=== PATIENT | male | born 1970 | race Caucasian/White ===

== ENCOUNTER 2019-12-17 22:35 | Inpatient (IN) | payer OTHER ==
[~2019-12-17] VITALS: Ht 177.8 cm; Wt 113.6 kg
[2019-12-17] MEDS ORDERED: NS IV 1000 ML 1,000 ML IV ONE (23:25)
[2019-12-17] MEDS ORDERED: NS IV 1000 ML 1,000 ML IV SCH (23:25)
[2019-12-17] MEDS ORDERED: AZITHROMYCIN INJECTION 500 MG in NS (IVPB) 250 ML IV ONE (23:30)
[2019-12-17] MEDS ORDERED: cefTRIAXone FOR IV USE 1,000 MG in WATER (STERILE) FOR INJECTION 10 ML IV ONE (23:30)
[2019-12-17 23:39] LABS: BILIRUBIN,URINE NEGATIVE (NEGATIVE); CLARITY,URINE CLEAR; COLOR,URINE YELLOW; GLUCOSE, URINE (UA) NEGATIVE (NEGATIVE); KETONES,URINE NEGATIVE (NEGATIVE); LEUKOCYTE ESTERASE ,URINE NEGATIVE (NEGATIVE); NITRITE,URINE NEGATIVE (NEGATIVE); PROTEIN,URINE NEGATIVE (NEGATIVE)
[2019-12-17 23:45] LABS: INR 2.2 (0.8-1.4); PROTHROMBIN TIME PATIENT 25.2 SEC (12.2-14.7)
[2019-12-17 23:55] LABS: BASOPHILS % (AUTO) 0 % (0-10); EOSINOPHILS % (AUTO) 0 % (0-10); HEMATOCRIT 49 % (40-54); HEMOGLOBIN 16.8 G/DL (13.3-17.7); LYMPHOCYTES # (AUTO) 1.5 X 10^3 (1.0-4.0); LYMPHOCYTES % (AUTO) 12 % (12-44); MEAN CORPUSCULAR HEMOGLOBIN 31 PG (25-34); MEAN CORPUSCULAR HGB CONC 34 G/DL (32-36); MEAN CORPUSCULAR VOLUME 91 FL (80-99); MONOCYTES # (AUTO) 0.7 X 10^3 (0.0-1.0); MONOCYTES % (AUTO) 6 % (0-12); NEUTROPHILS # (AUTO) 10.6 X 10^3 (1.8-7.8); NEUTROPHILS % (AUTO) 83 % (42-75); PLATELET COUNT 188 10^3/uL (130-400); RED CELL DISTRIBUTION WIDTH 14.1 % (10.0-14.5); WHITE BLOOD COUNT 12.8 10^3/uL (4.3-11.0)
[2019-12-17 23:58] LABS: BACTERIA,URINE TRACE /HPF
[2019-12-18] LABS: ALANINE AMINOTRANSFERASE 37 U/L (0-55); ALBUMIN 4.5 GM/DL (3.2-4.5); ALKALINE PHOSPHATASE 75 U/L (40-136); BILIRUBIN,TOTAL 0.3 MG/DL (0.1-1.0); BUN/CREATININE RATIO 15; CALCIUM 9.6 MG/DL (8.5-10.1); CARBON DIOXIDE 17 MMOL/L (21-32); CHLORIDE 105 MMOL/L (98-107); CREATININE SERUM 1.03 MG/DL (0.60-1.30); GFR ESTIMATED > 60; GLUCOSE 190 MG/DL (70-105); POTASSIUM 3.6 MMOL/L (3.6-5.0); SODIUM 137 MMOL/L (135-145)
--- NOTE | 2019-12-18 00:44 | ED EENT ---
History of Present Illness General Chief Complaint: Cough/Cold/Flu Symptoms Stated Complaint: CONGESTED Source: patient, family (dad) Exam Limitations: no limitations History of Present Illness Date Seen by Provider: Dec 18, 2019 Time Seen by Provider: 00:21 Initial Comments Patient resents to ER by private conveyance with chief complaint that about 10 days ago he started having a sore throat and had 2 days of fever Tmax 101 Fahrenheit. He has a history of artificial heart valve and is on warfarin 4 mg for 2 days and then 5 mg on the third day. He follows with Dr. Chavira. He went to see him and was put on cephalexin which she has also completed but is still having worsening sore throat, painful swallowing but no wheezing. Occasional cough but nonproductive. He is not having any nausea or chest pain. No coronary disease. Patient has not had any recent travel. He has been having difficulty with fluids but still able to drink despite pain. He is not using anything for pain or fever except for the occasional Bailey that he uses for his chronic knee pain. He said the last time he had Bailey was about 24 hours ago. He smokes about a pack cigarettes per day. Allergies and Home Medications Allergies Coded Allergies: No Known Drug Allergies (Unverified , 12/17/19) Patient Home Medication List Home Medication List Reviewed: Yes Review of Systems Review of Systems Constitutional: fever, malaise Eyes: Denies Blindness, Denies Blurred Vision Ears: Denies Dizziness, Denies Pain Nose: denies clots, denies congestion Mouth: denies clots, denies loose teeth Throat: pain, swelling; denies discharge, denies neck stiffness; hoarse; denies aphonia, denies muffled; painful swallowing, difficulty with fluids Respiratory: cough; No phlegm, No short of breath Cardiovascular: No chest pain, No edema; other (heart valve replacement) Gastrointestinal: No abdominal pain, No constipation, No diarrhea Musculoskeletal: No back pain; joint pain (chronic knee pain) All Other Systems Reviewed Negative Unless Noted: Yes Past Panjhpv-Gghcaw-Zxfvrj Hx Patient Social History Alcohol Use: Occasionally Uses Alcohol Beverage of Choice: Whiskey Recreational Drug Use: No Smoking Status: Current Everyday Smoker Type Used: Cigarettes Recent Foreign Travel: No Contact w/Someone Who Travel: No Physical Exam Height, Weight, BMI Height: '" Weight: lbs. oz. kg; BMI Method: General Appearance: WD/WN, mild distress Eyes: bilateral eye normal inspection, bilateral eye PERRL, bilateral eye EOMI Ears: bilateral ear auricle normal, bilateral ear canal normal, bilateral ear TM normal Nose: normal inspection; No discharge Mouth/Throat: No foreign body, No tonsillar exudate; tonsillar swelling (erythema), other (nonobstructive retropharynx.) Neck: full range of motion, supple, normal inspection, lymphadenopathy (R), lymphadenopathy (L) (shotty bilateral Dr. Alvares anterior cervical lymphadenopathy), tender lateral (anterior bilateral lymph node chains without palpable mass) Cardiovascular: normal peripheral pulses, regular rate, rhythm Respiratory: no respiratory distress, no accessory muscle use, rhonchi (mild rhonchus right side) Gastrointestinal: non tender, soft Neurologic/Psychiatric: alert, oriented x 3 Skin: normal color, warm/dry Progress/Results/Core Measures Results/Orders Lab Results Laboratory Tests Test 12/17/19 23:12 12/17/19 23:27 12/17/19 23:31 12/18/19 00:10 Range/Units White Blood Count 12.8 H 4.3-11.0 10^3/uL Red Blood Count 5.36 4.35-5.85 10^6/uL Hemoglobin 16.8 13.3-17.7 G/DL Hematocrit 49 40-54 % Mean Corpuscular Volume 91 80-99 FL Mean Corpuscular Hemoglobin 31 25-34 PG Mean Corpuscular Hemoglobin Concent 34 32-36 G/DL Red Cell Distribution Width 14.1 10.0-14.5 % Platelet Count 188 130-400 10^3/uL Mean Platelet Volume 12.0 H 7.4-10.4 FL Neutrophils (%) (Auto) 83 H 42-75 % Lymphocytes (%) (Auto) 12 12-44 % Monocytes (%) (Auto) 6 0-12 % Eosinophils (%) (Auto) 0 0-10 % Basophils (%) (Auto) 0 0-10 % Neutrophils # (Auto) 10.6 H 1.8-7.8 X 10^3 Lymphocytes # (Auto) 1.5 1.0-4.0 X 10^3 Monocytes # (Auto) 0.7 0.0-1.0 X 10^3 Eosinophils # (Auto) 0.0 0.0-0.3 10^3/uL Basophils # (Auto) 0.0 0.0-0.1 10^3/uL Prothrombin Time 25.2 H 12.2-14.7 SEC INR Comment 2.2 H 0.8-1.4 Activated Partial Thromboplast Time 40 H 24-35 SEC Sodium Level 137 135-145 MMOL/L Potassium Level 3.6 3.6-5.0 MMOL/L Chloride Level 105 98-107 MMOL/L Carbon Dioxide Level 17 L 21-32 MMOL/L Anion Gap 15 H 5-14 MMOL/L Blood Urea Nitrogen 15 7-18 MG/DL Creatinine 1.03 0.60-1.30 MG/DL Estimat Glomerular Filtration Rate > 60 BUN/Creatinine Ratio 15 Glucose Level 190 H 70-105 MG/DL Calcium Level 9.6 8.5-10.1 MG/DL Corrected Calcium 9.2 8.5-10.1 MG/DL Total Bilirubin 0.3 0.1-1.0 MG/DL Aspartate Amino Transf (AST/SGOT) 27 5-34 U/L Alanine Aminotransferase (ALT/SGPT) 37 0-55 U/L Alkaline Phosphatase 75 40-136 U/L Total Protein 8.0 6.4-8.2 GM/DL Albumin 4.5 3.2-4.5 GM/DL Lactic Acid Level 3.08 *H 0.50-2.00 MMOL/L Urine Color YELLOW Urine Clarity CLEAR Urine pH 6.0 5-9 Urine Specific [place] <=1.005 1.016-1.022 Urine Protein NEGATIVE NEGATIVE Urine Glucose (UA) NEGATIVE NEGATIVE Urine Ketones NEGATIVE NEGATIVE Urine Nitrite NEGATIVE NEGATIVE Urine Bilirubin NEGATIVE NEGATIVE Urine Urobilinogen 0.2 < = 1.0 MG/DL Urine Leukocyte Esterase NEGATIVE NEGATIVE Urine RBC (Auto) TRACE-I NEGATIVE Urine RBC NONE /HPF Urine WBC NONE /HPF Urine Crystals NONE /LPF Urine Bacteria TRACE /HPF Urine Casts NONE /LPF Urine Mucus NEGATIVE /LPF Urine Culture Indicated NO Group A Streptococcus Screen NEGATIVE NEGATIVE Micro Results Microbiology 12/17/19 Influenza Types A,B Antigen (MICHAEL) - Final, Complete My Orders Orders - MARGI RODRIGUEZ Influenza A And B Antigens (12/17/19 23:20) Cbc With Automated Diff (12/17/19 23:20) Comprehensive Metabolic Panel (12/17/19 23:20) Blood Culture (12/17/19 23:20) Sputum Culture (12/17/19:20) Urinalysis (12/17/19:20) Urine Culture (12/17/19:20) Protime With Inr (12/17/19:20) Partial Thromboplastin Time (12/17/19:20) Chest 1 View, Ap/Pa Only (12/17/19:20) Ed Iv/Invasive Line Start (12/17/19:20) Ed Iv/Invasive Line Start (12/17/19:20) Vital Signs Adult Sepsis Patie Q15M (12/17/19:20) O2 (12/17/19:20) Remove Rings In Anticipation O (12/17/19:) Lactic Acid Analyzer (12/17/19:20) Ed Iv/Invasive Line Start (12/17/19 23:20) Ed Iv/Invasive Line Start (12/17/19 23:25) Ns Iv 1000 Ml (Sodium Chloride 0.9%) (12/17/19 23:25) Ns Iv 1000 Ml (Sodium Chloride 0.9%) (12/17/19 23:25) Ceftriaxone For Iv Use (Rocephin For I (12/17/19 23:30) Azithromycin Injection (Zithromax Inject (12/17/19 23:30) Rapid Strep A Screen (12/18/19 00:06) Drug Screen Stat (Urine) (12/18/19 00:35) Medications Given in ED Current Medications Medications Dose Ordered Sig/Kamla Route Start Time Stop Time Status Last Admin Dose Admin Azithromycin 500 mg/Sodium Chloride 250 ml @ 250 mls/hr ONCE ONCE IV 12/17/19 23:30 12/18/19 00:29 DC 12/18/19 00:08 250 MLS/HR Ceftriaxone Sodium 1000 mg/ Sterile Water 10 ml @ 200 mls/hr ONCE ONCE IV 12/17/19 23:30 12/17/19 23:32 DC 12/18/19 00:08 200 MLS/HR Sodium Chloride 1,000 ml @ 0 mls/hr Q0M ONCE IV 12/17/19 23:25 12/17/19 23:27 DC 12/17/19 23:56 1,000 MLS/HR Progress Progress Note : Time: 00:46 Progress Note Sepsis based on tachycardia and increased respiratory rate and history of fever. Septic workup was given, Rocephin and azithromycin. Possible he has developed pneumonia although is not seen on the chest x-ray. Could also be bronchitis related to the retropharyngeal infection. He has failed outpatient antibiotics. We will hold off on steroids and continue Rocephin and azithromycin. He is not having any airway or drinking compromise at this time. 2 L would be greater than 20 mL/kg based on ideal body weight. His heart rate was 120 to 1:30 when he arrived is now down about 100-110 after the first liter of fluids. Blood pressure has been stable since he got here and would be fine to go to the floor. Diagnostic Imaging Diagonstic Imaging: Xray Plain Films/CT/US/NM/MRI: chest Comments No acute cardiopulmonary process noted. Reviewed: Reviewed by Me Departure Communication (Admissions) Time/Spoke to Admitting Phy: 00:35 Discussed case lab imaging with Dr. Chavira and the possibility of an occult pneumonia. Discussed that he has failed outpatient antibiotics for his retropharyngeal infection. Do not palpate or have any evidence of significant abscess or airway obstruction. Plan to keep IV fluids going. He agrees with antibiotic selection. Impression Primary Impression: Pneumonia Qualified Codes: J18.9 - Pneumonia, unspecified organism Additional Impressions: Pharyngitis Qualified Codes: J02.9 - Acute pharyngitis, unspecified Sepsis Qualified Codes: A41.9 - Sepsis, unspecified organism Disposition: ADMITTED INPATIENT Condition: Stable Admissions Decision to Admit Reason: Admit from ER (General) Decision to Admit/Date: Dec 18, 2019 Time/Decision to Admit Time: 00:27 Departure-Patient Inst. Referrals: SUSY CHAVIRA DO (PCP) Primary Care Physician Focused Exam Sepsis Stage: Sepsis Possible Source: Pulmonary Lactate Level 12/17/19 23:27: Lactic Acid Level 3.08*H Height, Weight, BMI Height: '" Weight: lbs. oz. kg; BMI Method: Respiratory: No Accessory Muscle Use, No Respiratory Distress, Rhonci Cardiovascular: Regular Rate, Rhythm, No Edema, Tachycardia Capillary Refill: Less Than 3 Seconds Peripheral Pulses: 2+ Dorsalis Pedis (R), 2+ Left Dors-Pedis (L) Skin: normal color, warm/dry Lactic Acid Level Laboratory Tests Test 12/17/19 23:27 Lactic Acid Level 3.08 MMOL/L (0.50-2.00) *H Within 3hrs of presentation: Admin fluids, Admin 30ml/kg IBW due to BMI>30, Admin ABX, Blood cultures prior to ABX's, Focus exam, Lactate level MARGI RODRIGUEZ Dec 18, 2019 00:44
[2019-12-18 01:10] LABS: AMPHETAMINE SCREEN, URINE NEGATIVE (NEGATIVE); BARBITURATE SCREEN URINE NEGATIVE (NEGATIVE); BENZODIAZEPINES SCREEN URINE POSITIVE (NEGATIVE); CANNABINOID SCREEN, URINE NEGATIVE (NEGATIVE); COCAINE SCREEN URINE NEGATIVE (NEGATIVE); METHADONE STAT NEGATIVE (NEGATIVE); METHAMPHETAMINE SCREEN URINE S NEGATIVE (NEGATIVE); OPIATE SCREEN URINE NEGATIVE (NEGATIVE); OXYCODONE STAT NEGATIVE (NEGATIVE); PROPOXYPHENE STAT NEGATIVE (NEGATIVE); TRICYCLIC ANTIDEPRESSANTS SCRE NEGATIVE (NEGATIVE)
[2019-12-18] MEDS ORDERED: NS W/KCL 20 MEQ/L 1,000 ML IV ONE (01:48)
[2019-12-18] MEDS ORDERED: ACETAMINOPHEN 325 MG TABLET PO PRN (02:30)
[2019-12-18] MEDS ORDERED: ONDANSETRON 4 MG/2 ML (SDV) Z0FRAN IV PRN (02:30)
[2019-12-18] MEDS: NS W/KCL 20 MEQ/L 1,000 ML IV SCH ×2 (02:30→13:28)
[2019-12-18 02:48] VITALS: BP 138/74
--- NOTE | 2019-12-18 03:40 | NUR ---
MAT score of 3 Albuterol Q2PRN Monitor and Reassess Q72HRs and PRN Addendum: 12/18/19 at 0341 by KAREN OCONNELL RT Amended: Links added.
[2019-12-18] MEDS ORDERED: RT-ALBUTEROL SULF 2.5 MG/3 ML PRE-MIX VIAL INH PRN (03:45)
[2019-12-18 04:25] VITALS: BP 135/98
--- NOTE | 2019-12-18 04:57 | Diagnostic Imaging Report ---
Indication: Respiratory infection Portable chest 11:54 PM There are postoperative changes from a median sternotomy. Heart size and pulmonary vascularity are normal. Lungs are clear. There are no effusions or pneumothoraces. IMPRESSION: No acute abnormalities in the chest Dictated by: Dictated on workstation # [id number]
[2019-12-18] MEDS: HYDROcodone/APAP 5 MG/325 MG (LORTAB) TAB PO PRN (06:11)
[2019-12-18 06:16] LABS: BASOPHILS % (AUTO) 0 % (0-10); EOSINOPHILS % (AUTO) 0 % (0-10); HEMATOCRIT 44 % (40-54); HEMOGLOBIN 15.3 G/DL (13.3-17.7); LYMPHOCYTES % (AUTO) 22 % (12-44); MEAN CORPUSCULAR HEMOGLOBIN 32 PG (25-34); MEAN CORPUSCULAR HGB CONC 35 G/DL (32-36); MEAN CORPUSCULAR VOLUME 92 FL (80-99); MEAN PLATELET VOLUME 11.6 FL (7.4-10.4); MONOCYTES # (AUTO) 0.8 X 10^3 (0.0-1.0); MONOCYTES % (AUTO) 6 % (0-12); NEUTROPHILS # (AUTO) 9.5 X 10^3 (1.8-7.8); NEUTROPHILS % (AUTO) 71 % (42-75); PLATELET COUNT 154 10^3/uL (130-400); RED CELL DISTRIBUTION WIDTH 14.2 % (10.0-14.5); WHITE BLOOD COUNT 13.3 10^3/uL (4.3-11.0)
[2019-12-18 06:25] LABS: INR 2.5 (0.8-1.4); PROTHROMBIN TIME PATIENT 28.3 SEC (12.2-14.7)
[2019-12-18 06:33] LABS: ALANINE AMINOTRANSFERASE 36 U/L (0-55); ALKALINE PHOSPHATASE 60 U/L (40-136); BILIRUBIN,TOTAL 0.3 MG/DL (0.1-1.0); BUN/CREATININE RATIO 15; CALCIUM 8.1 MG/DL (8.5-10.1); CARBON DIOXIDE 19 MMOL/L (21-32); CHLORIDE 107 MMOL/L (98-107); CREATININE SERUM 0.86 MG/DL (0.60-1.30); GFR ESTIMATED > 60; GLUCOSE 110 MG/DL (70-105); POTASSIUM 4.5 MMOL/L (3.6-5.0); SODIUM 134 MMOL/L (135-145); TOTAL PROTEIN 7.1 GM/DL (6.4-8.2)
[2019-12-18 07:52] VITALS: BP 132/86
--- NOTE | 2019-12-18 08:08 | History & Physical ---
History of Present Illness History of Present Illness Reason for visit/HPI Patient came out to the emergency room in private vehicle. Patient has been treated as an outpatient for respiratory problem without succ ess. Patient has cough and congestion. Patient having severe sore throat and problem with talking. Patient having lung congestion. Patient has an elevated lactic acid of 3.08. Patient tachycardia.. Allergic to medications denies. Surgery open heart mitral valve, knee, appendectomy. Family history mother of lung cancer. Patient admits to smoking Date of Admission Dec 18, 2019 at 00:35 Time Seen by a Provider: 07:50 I consulted on this patient on 12/18/19 07:50 Attending Physician Elbert Chavira DO Admitting Physician Elbert Chavira DO Consult Allergies and Home Medications Allergies Coded Allergies: No Known Drug Allergies (Unverified , 12/17/19) Patient Home Medication List Home Medication List Reviewed: No Past Tlhumpo-Jgjwfo-Nlocez Hx Past Med/Social Hx: Reviewed Nursing Past Med/Soc Hx Patient Social History Marrital Status: Employed/Student: employed Alcohol Use: Occasionally Uses Alcohol Beverage of Choice: Whiskey Recreational Drug Use: No Smoking Status: Current Everyday Smoker Type Used: Cigarettes Recent Foreign Travel: No Contact w/other who traveled: No Recent Hopitalizations: No Recent Infectious Disease Expo: No Immunizations Up To Date Date of Influenza Vaccine: Jul 18, 2019 Seasonal Allergies Seasonal Allergies: No Past Medical History Surgeries: Appendectomy, Cardiac Cardiac: Hypertension, Valvular Heart Disease (0) Musculoskeletal: Arthritis Review of Systems Constitutional: weakness EENTM: throat pain Respiratory: cough Cardiovascular: vascular heart diseas Gastrointestinal: no symptoms reported Genitourinary: no symptoms reported Physical Exam Vital Signs Vital Signs - First Documented 12/17/19 12/18/19 23:00 03:36 Temp 37.1 Pulse 115 Resp 20 B/P (MAP) 128/85 (99) Pulse Ox 94 O2 Delivery Room Air FiO2 21 Capillary Refill : Less Than 3 Seconds Height, Weight, BMI Height: '" Weight: lbs. oz. kg; 35.93 BMI Method: General Appearance: No Apparent Distress, WD/WN Eyes: Bilateral Eye Normal Inspection HEENT: Normal ENT Inspection Neck: Full Range of Motion, Normal Inspection Respiratory: No Accessory Muscle Use, No Respiratory Distress, Decreased Breath Sounds, Other (Congestion with coughing) Cardiovascular: Regular Rate, Rhythm, Other (Mitral valve) Gastrointestinal: Non Tender, Soft Assessment/Plan Assessment and Plan Pneumonia. Pharyngitis. Sepsis. Admission Diagnosis Admission Status: Inpatient Order (span 2 midnights) Reason for Inpatient Admission: Lactic acid over 3. Tachycardia. Severe sore throat area Mitral valve replacement Clinical Quality Measures DVT/VTE Risk/Contraindication: Risk Factor Score Per Nursin RFS Level Per Nursing on Admit: 4+=Very High ELBERT CHAVIRA DO Dec 18, 2019 08:07
[2019-12-18] MEDS ORDERED: CATHETER FLUSH 10 ML SYR IV PRN (08:30)
[2019-12-18] MEDS ORDERED: ALPR1TAB7 PO (09:57)
[2019-12-18] MEDS ORDERED: CEPH500C PO (09:57)
[2019-12-18] MEDS ORDERED: LISI-552 PO (09:57)
[2019-12-18] MEDS ORDERED: HYDR-4227 PO (09:57)
[2019-12-18] MEDS ORDERED: PRED10TA22 PO (09:57)
[2019-12-18] MEDS ORDERED: WARF4TAB70 PO (10:01)
[2019-12-18] MEDS ORDERED: WARF-48 PO (10:01)
[2019-12-18] MEDS: PROMETHAZINE/ CODEINE SYRUP 5 ML UDC PO PRN ×2 (10:02→18:23)
--- NOTE | 2019-12-18 10:44 | Physician Query Clarification ---
PQ-Intro New Diagnosis Admission/Discharge Admission Date: Dec 18, 2019 at 00:35 Discharge Date: The medical record reflects the following clinical scenario: History/Risk Factors: Sepsis Pneumonia/acute pharyngitis Clinical Findings:Lactic acid 3.08 Treatment: Lactic acid levels x 2. IV Azithromycin 500mg and IV Ceftriaxone. Question: What condition best reflects the above clinical scenario? Please document a response in the Progress Noter or Discharge Summary. 1. Severe sepsis with lactic acidosis level of 3.08. 2. Lactic acidosis with level of 3.08. 3. Other, with explanation of the clinical findings. 4. Clinically undetermined, no explanation for the clinical findings. PHYSICIAN RESPONSE What condition reflects above: Clinically undetermined Please remember a lack of response to the above will prompt a phone page by [facility]/Coding staff. In responding to this query, please exercise your independent professional judgment. The purpose of this communication is to more accurately reflect the complexity of your patients condition. The fact that a question is asked does not imply that any particular answer is desired or expected. Thank you for your timely response to this clarification. Requestors name: Meeta Torres [facility] Phone # ext [phone] or [phone] THIS PHYSICIAN QUERY FORM IS A PERMANENT PART OF THE MEDICAL RECORD MEETA TORRES Dec 18, 2019 10:44 SUSY CHAVIRA DO Dec 19, 2019 07:36
--- NOTE | 2019-12-18 11:09 | NUR ---
SPOKE WITH THE PT WENT THRU THE EXT MED HISTORY AND CALLED [facility] COMPLETE THE MED REC. WARFARIN: PT TAKES 4MG FOR 2 DAYS THEN ON THE THIRD DAY HE TAKES 5MG EXAMPLE: THIS WEEK HAS GONE HAS FOLLOWS- SUN 12-13 WARFARIN 4MG 12-14 WARFARIN 4MG 12-15 WARFARIN 5MG 12-16 WARFARIN 4MG PREDNISONE 10MG IS ON A TAPER AND IS DOCUMENTED IN THE MED REC ALL OTHER MEDS ARE LISTED IN THE EXT MED HIST OTC: NONE
[2019-12-18] MEDS ORDERED: ALPRAZolam 1 MG (XANAX) TAB PO PRN (11:45)
[2019-12-18] MEDS ORDERED: HYDROcodone/APAP 7.5 MG/325 MG (LORTAB, LORCET PLUS) TABLET PO PRN (11:45)
[2019-12-18 12:58] VITALS: BP 134/82
[2019-12-18] MEDS: cefTRIAXone FOR IV USE 1,000 MG in WATER (STERILE) FOR INJECTION 10 ML IV SCH (13:28)
--- NOTE | 2019-12-18 13:34 | Diagnostic Imaging Report ---
INDICATION: Pneumonia, follow-up. TECHNIQUE: Two view chest at 11:28 AM CORRELATION STUDY: 12/17/2019 FINDINGS: Poststernotomy changes. Heart size, mediastinum, vasculature overall generally stable. The lung teixeira are relatively clear without significant consolidating infiltrate. Visualized osseous structures are unremarkable. IMPRESSION: 1. Stable chest demonstrates no acute abnormality. Dictated by: Dictated on workstation # [id number]
[2019-12-18 15:55] VITALS: BP 114/76
[2019-12-18] MEDS ORDERED: warFARin 4 MG (COUMADIN) TAB PO SCH ×2 (18:00)
[2019-12-18 20:00] VITALS: BP 157/88
[2019-12-19] MEDS: PROMETHAZINE/ CODEINE SYRUP 5 ML UDC PO PRN (00:21)
[2019-12-19 00:38] VITALS: BP 138/78
[2019-12-19 04:00] VITALS: BP 138/84
[2019-12-19 05:03] LABS: HEMOGLOBIN 15.1 G/DL (13.3-17.7); MEAN PLATELET VOLUME 11.4 FL (7.4-10.4); RED CELL DISTRIBUTION WIDTH 14.2 % (10.0-14.5); WHITE BLOOD COUNT 7.1 10^3/uL (4.3-11.0)
[2019-12-19 05:19] LABS: INR 2.2 (0.8-1.4); PROTHROMBIN TIME PATIENT 25.1 SEC (12.2-14.7)
[2019-12-19 05:26] LABS: BUN/CREATININE RATIO 14; CALCIUM 8.2 MG/DL (8.5-10.1); CARBON DIOXIDE 21 MMOL/L (21-32); CHLORIDE 107 MMOL/L (98-107); CREATININE SERUM 0.85 MG/DL (0.60-1.30); GFR ESTIMATED > 60; GLUCOSE 86 MG/DL (70-105); POTASSIUM 4.6 MMOL/L (3.6-5.0); SODIUM 137 MMOL/L (135-145)
[2019-12-19] MEDS: NS W/KCL 20 MEQ/L 1,000 ML IV SCH (05:40)
[2019-12-19] MEDS: HYDROcodone/APAP 5 MG/325 MG (LORTAB) TAB PO PRN (07:39)
--- NOTE | 2019-12-19 08:06 | Progress Note ---
Subjective Time Seen by a Provider: 08:04 Subjective/Events-last exam Patient doing better and feeling better. Patient wants to go home. Patient to be discharged today. Patient afebrile. Breathing better. Patient speaking better Focused Exam Lactate Level 12/17/19 23:27: Lactic Acid Level 3.08*H 12/18/19 05:53: Lactic Acid Level 1.43 Objective Exam Vital Signs Date Time Temp Pulse Resp B/P (MAP) Pulse Ox O2 Delivery O2 Flow Rate FiO2 12/19/19 04:00 36.6 69 20 138/84 (102) 98 Room Air 12/19/19 00:38 36.2 69 20 138/78 (98) 95 Room Air 12/18/19 20:01 Room Air 12/18/19 20:00 36.4 87 20 157/88 (111) 96 Room Air 12/18/19 20:00 96 Room Air 12/18/19 18:54 36.2 12/18/19 15:55 36.2 75 15 114/76 (89) 96 Room Air 12/18/19 12:58 36.8 92 20 134/82 (99) 97 Room Air I & O 12/19/19 07:00 Intake Total 3910 ml Balance 3910 ml Capillary Refill : Less Than 3 Seconds General Appearance: No Apparent Distress, WD/WN HEENT: Normal ENT Inspection Neck: Full Range of Motion, Non Tender Respiratory: Lungs Clear, No Accessory Muscle Use, No Respiratory Distress Cardiovascular: Regular Rate, Rhythm, No Murmur Gastrointestinal: non tender, soft Results Lab Laboratory Tests 12/19/19 04:30 Laboratory Tests 12/19/19 04:30: White Blood Count 7.1, Red Blood Count 4.84, Hemoglobin 15.1, Hematocrit 45, Mean Corpuscular Volume 93, Mean Corpuscular Hemoglobin 31, Mean Corpuscular Hemoglobin Concent 34, Red Cell Distribution Width 14.2, Platelet Count 129L, Mean Platelet Volume 11.4H, Prothrombin Time 25.1H, INR Comment 2.2H, Sodium Level 137, Potassium Level 4.6, Chloride Level 107, Carbon Dioxide Level 21, Anion Gap 9, Blood Urea Nitrogen 12, Creatinine 0.85, Estimat Glomerular Filtration Rate > 60, BUN/Creatinine Ratio 14, Glucose Level 86, Calcium Level 8.2L Microbiology 12/17/19 Blood Culture - Preliminary, Resulted No growth 12/17/19 Influenza Types A,B Antigen (MICHAEL) - Final, Complete Assessment/Plan Assessment/Plan Assess & Plan/Chief Complaint Pneumonia. Pharyngitis. 2 office next Sunday. Patient sent home on [employer] Clinical Quality Measures Admission Status Admission Dx Pneumonia. Pharyngitis. Sepsis. DVT/VTE Risk/Contraindication: Risk Factor Score Per Nursin RFS Level Per Nursing on Admit: 4+=Very High Contraindications-Pharm: Other *list below* SUSY CHAVIRA DO Dec 19, 2019 08:06
[2019-12-19] MEDS ORDERED: AZIT250T PO (08:09)
[2019-12-19] MEDS: cefTRIAXone FOR IV USE 1,000 MG in WATER (STERILE) FOR INJECTION 10 ML IV SCH (08:47)
[2019-12-19] MEDS ORDERED: AZITHROMYCIN INJECTION 500 MG in NS (IVPB) 250 ML IV SCH (09:00)
[2019-12-19] MEDS ORDERED: lisINopril 20 MG (PRINIVIL) TABLET PO SCH (11:00)
[2019-12-19] MEDS ORDERED: warFARin 1 MG (COUMADIN) TAB PO SCH (18:00)
--- OUTSIDE RECORDS SUMMARY | 2019-12-20 00:37 | XMS REPORT | Continuity of Care Document ---
Author Organization Unknown Address Unknown Phone Unavailable Allergies Active Description Code Type Severity Reaction Onset Reported/Identified Relationship to Patient Clinical Status Yes No Known Drug Allergies [id number] Drug Allergy Unknown N/A 12/17/2019 Medications There is no data. Problems Date Dx Coded Attending Type Code Diagnosis Diagnosed By 12/18/2019 GELLENDER DO, SUSY Chavez Ot A41.9 SEPSIS, UNSPECIFIED ORGANISM 12/18/2019 GELLENDER DO, SUSY Chavez Ot F17.210 NICOTINE DEPENDENCE, CIGARETTES, UNCOMPL 12/18/2019 GELLENDER DO, SUSY Chavez Ot I10 ESSENTIAL (PRIMARY) HYPERTENSION 12/18/2019 GELLENDER DO, SUSY Chavez Ot J02.9 ACUTE PHARYNGITIS, UNSPECIFIED 12/18/2019 GELLENDER DO, SUSY Chavez Ot J18.9 PNEUMONIA, UNSPECIFIED ORGANISM 12/18/2019 GELLENDER DO, SUSY Chavez Ot Z79.01 GROUP HOME (CURRENT) USE OF ANTICOAGULANT 12/18/2019 GELLENDER DO, SUSY Chavez Ot Z95.2 PRESENCE OF PROSTHETIC HEART VALVE 12/19/2019 GELLENDER DO, SUSY Chavez Ot A41.9 SEPSIS, UNSPECIFIED ORGANISM 12/19/2019 GELLENDER DO, SUSY Chavez Ot F17.210 NICOTINE DEPENDENCE, CIGARETTES, UNCOMPL 12/19/2019 GELLENDER DO, SUSY Chavez Ot I10 ESSENTIAL (PRIMARY) HYPERTENSION 12/19/2019 GELLENDER DO, SUSY Chavez Ot J02.9 ACUTE PHARYNGITIS, UNSPECIFIED 12/19/2019 GELLENDER DO, SUSY Chavez Ot J18.9 PNEUMONIA, UNSPECIFIED ORGANISM 12/19/2019 GELLENDER DO, SUSY Chavez Ot 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 Results Test Result Range PT panel in platelet poor plasma by coag ulation assay - 12/17/19 23:12 Prothrombin time (PT) in platelet poor plasma by coagu lation assay 25.2 s 12.2-14.7 INR in platelet poor plasma or blood by coagulation as say 2.2 0.8-1.4 Activated partial thromboplastin time (a PTT) in platelet poor plasma bycoagulation assay - 12/17/19 23:12 Activated partial thromboplastin time (a PTT) in platelet poor plasma bycoagulation assay 40 s 24-35 Comprehensive metabolic panel - 12/17/19 23:12 Serum or plasma sodium measurement (moles/volume) 137 mmol/L 135-145 Serum or plasma potassium measurement (moles/volume) 3.6 mmol/L 3.6-5.0 Serum or plasma chloride measurement (moles/volume) 105 mmol/L 98-107 Carbon dioxide 17 mmol/L 21-32 Serum or plasma anion gap determination (moles/volume) 15 mmol/L 5-14 Serum or plasma urea nitrogen measurement (mass/volume ) 15 mg/dL 7-18 Serum or plasma creatinine measurement (mass/volume) 1.03 mg/dL 0.60-1.30 Serum or plasma urea nitrogen/creatinine mass ratio 15 NRG Serum or plasma creatinine measurement w ith calculation of estimated glomerular filtration rate > NRG Serum or plasma glucose measurement (mass/volume) 190 mg/dL 70-105 Serum or plasma calcium measurement (mass/volume) 9.6 mg/dL 8.5-10.1 Serum or plasma total bilirubin measurement (mass/volu me) 0.3 mg/dL 0.1-1.0 Serum or plasma alkaline phosphatase ofelia surement (enzymatic activity/volume) 75 U/L 40-136 Serum or plasma aspartate aminotransfera se measurement (enzymatic activity/volume) 27 U/L 5-34 Serum or plasma alanine aminotransferase measurement (enzymatic activity/volume) 37 U/L 0-55 Serum or plasma protein measurement (mass/volume) 8.0 g/dL 6.4-8.2 Serum or plasma albumin measurement (mass/volume) 4.5 g/dL 3.2-4.5 CALCIUM CORRECTED 9.2 mg/dL 8.5-10.1 Complete blood count (CBC) with automate d white blood cell (WBC) differential - 12/17/19 23:12 Blood leukocytes automated count (number/volume) 12.8 10*3/uL 4.3-11.0 Blood erythrocytes automated count (number/volume) 5.36 10*6/uL 4.35-5.85 Venous blood hemoglobin measurement (mass/volume) 16.8 g/dL 13.3-17.7 Blood hematocrit (volume fraction) 49 % 40-54 Automated erythrocyte mean corpuscular volume 91 [ foz_us] 80-99 Automated erythrocyte mean corpuscular h emoglobin (mass per erythrocyte) 31 pg 25-34 Automated erythrocyte mean corpuscular h emoglobin concentration measurement (mass/volume) 34 g/dL 32-36 Automated erythrocyte distribution width ratio 14. 1 % 10.0- 14.5 Automated blood platelet count (count/volume) 188 10*3/uL 130-400 Automated blood platelet mean volume measurement 12.0 [foz_us] 7.4-10.4 Automated blood neutrophils/100 leukocytes 83 % 42-75 Automated blood lymphocytes/100 leukocytes 12 % 12-44 Blood monocytes/100 leukocytes 6 % 0-12 Automated blood eosinophils/100 leukocytes 0 % 0-10 Automated blood basophils/100 leukocytes 0 % 0-10 Blood neutrophils automated count (number/volume) 10.6 10*3 1.8-7.8 Blood lymphocytes automated count (number/volume) 1.5 10*3 1.0-4.0 Blood monocytes automated count (number/volume) 0. 7 10*3 0.0-1.0 Automated eosinophil count 0.0 10*3/uL 0 .0-0.3 Automated blood basophil count (count/volume) 0.0 10*3/uL 0.0-0.1 Influenza virus A and B antigen detectio n - 12/17/19 23:26 FLU RESULT NEGATIVE FOR INFLUENZA A AND B ANTIGENS BY IA NRG Blood lactic acid measurement (moles/vol ume) - 12/17/19 23:27 Blood lactic acid measurement (moles/volume) 3.08 mmol/L 0.50-2.00 Bacterial blood culture - 12/17/19 23:27 Bacterial blood culture NG NRG Complete urinalysis with reflex to cultu re - 12/17/19 23:31 Urine color determination YELLOW NRG Urine clarity determination CLEAR NR G Urine pH measurement by test strip 6.0 5-9 Specific gravity of urine by test strip <= 1.016-1.022 Urine protein assay by test strip, semi-quantitative NEGATIVE NEGATIVE Urine glucose detection by automated test strip NE GATIVE NEGATIVE Erythrocytes detection in urine sediment by light micr oscopy TRACE-I NEGATIVE Urine ketones detection by automated test strip NE GATIVE NEGATIVE Urine nitrite detection by test strip NEGATIVE NEGATIVE Urine total bilirubin detection by test strip NEGA TIVE NEGATIVE Urine urobilinogen measurement by automated test strip (mass/volume) 0.2 mg/dL < = 1.0 Urine leukocyte esterase detection by dipstick NEG ATIVE NEGATIVE Automated urine sediment erythrocyte cou nt by microscopy (number/high power field) NONE NRG Automated urine sediment leukocyte count by microscopy (number/high power field) NONE NRG Bacteria detection in urine sediment by light microsco py TRACE NRG Crystals detection in urine sediment by light microsco py NONE NRG Casts detection in urine sediment by light microscopy NONE NRG Mucus detection in urine sediment by light microscopy NEGATIVE NRG Complete urinalysis with reflex to culture NO NRG Urine drug screening test - 12/17/19 23: 31 Urine phencyclidine detection by screening method NEGATIVE NEGATIVE Urine benzodiazepines detection by screening method POSITIVE NEGATIVE Urine cocaine detection NEGATIVE NEGATI VE Urine amphetamines detection by screening method N EGATIVE NEGATIVE Urine methamphetamine detection by screening method NEGATIVE NEGATIVE Urine cannabinoids detection by screening method N EGATIVE NEGATIVE Urine opiates detection by screening method NEGATI VE NEGATIVE Urine barbiturates detection NEGATIVE N EGATIVE Screening urine tricyclic antidepressants detection NEGATIVE NEGATIVE Urine methadone detection by screening method NEGA TIVE NEGATIVE Urine oxycodone detection NEGATIVE NEGA TIVE Urine propoxyphene detection NEGATIVE N EGATIVE Bacterial urine culture - 12/17/19 23:31 Bacterial urine culture NG NRG Bacterial blood culture - 12/17/19 23:43 Bacterial blood culture NG NRG Streptococcus pyogenes antigen detection - 12/18/19 00:10 Streptococcus pyogenes antigen detection NEGATIVE NEGATIVE Bacterial throat culture - 12/18/19 00:1 0 Complete blood count (CBC) with automate d white blood cell (WBC) differential - 12/18/19 05:53 Blood leukocytes automated count (number/volume) 13.3 10*3/uL 4.3-11.0 Blood erythrocytes automated count (number/volume) 4.80 10*6/uL 4.35-5.85 Venous blood hemoglobin measurement (mass/volume) 15.3 g/dL 13.3-17.7 Blood hematocrit (volume fraction) 44 % 40-54 Automated erythrocyte mean corpuscular volume 92 [ foz_us] 80-99 Automated erythrocyte mean corpuscular h emoglobin (mass per erythrocyte) 32 pg 25-34 Automated erythrocyte mean corpuscular h emoglobin concentration measurement (mass/volume) 35 g/dL 32-36 Automated erythrocyte distribution width ratio 14. 2 % 10.0- 14.5 Automated blood platelet count (count/volume) 154 10*3/uL 130-400 Automated blood platelet mean volume measurement 11.6 [foz_us] 7.4-10.4 Automated blood neutrophils/100 leukocytes 71 % 42-75 Automated blood lymphocytes/100 leukocytes 22 % 12-44 Blood monocytes/100 leukocytes 6 % 0-12 Automated blood eosinophils/100 leukocytes 0 % 0-10 Automated blood basophils/100 leukocytes 0 % 0-10 Blood neutrophils automated count (number/volume) 9.5 10*3 1.8-7.8 Blood lymphocytes automated count (number/volume) 3.0 10*3 1.0-4.0 Blood monocytes automated count (number/volume) 0. 8 10*3 0.0-1.0 Automated eosinophil count 0.0 10*3/uL 0 .0-0.3 Automated blood basophil count (count/volume) 0.0 10*3/uL 0.0-0.1 Blood lactic acid measurement (moles/vol ume) - 12/18/19 05:53 Blood lactic acid measurement (moles/volume) 1.43 mmol/L 0.50-2.00 Automated blood complete blood count (he mogram) panel - 12/19/19 04:30 Blood leukocytes automated count (number/volume) 7.1 10*3/uL 4.3-11.0 Blood erythrocytes automated count (number/volume) 4.84 10*6/uL 4.35-5.85 Venous blood hemoglobin measurement (mass/volume) 15.1 g/dL 13.3-17.7 Blood hematocrit (volume fraction) 45 % 40-54 Automated erythrocyte mean corpuscular volume 93 [ foz_us] 80-99 Automated erythrocyte mean corpuscular h emoglobin (mass per erythrocyte) 31 pg 25-34 Automated erythrocyte mean corpuscular h emoglobin concentration measurement (mass/volume) 34 g/dL 32-36 Automated erythrocyte distribution width ratio 14. 2 % 10.0- 14.5 Automated blood platelet count (count/volume) 129 10*3/uL 130-400 Automated blood platelet mean volume measurement 11.4 [foz_us] 7.4-10.4 PT panel in platelet poor plasma by coag ulation assay - 12/19/19 04:30 Prothrombin time (PT) in platelet poor plasma by coagu lation assay 25.1 s 12.2-14.7 INR in platelet poor plasma or blood by coagulation as say 2.2 0.8-1.4 Whole blood basic metabolic panel - 12/06 12/25 04:30 Serum or plasma sodium measurement (moles/volume) 137 mmol/L 135-145 Serum or plasma potassium measurement (moles/volume) 4.6 mmol/L 3.6-5.0 Serum or plasma chloride measurement (moles/volume) 107 mmol/L 98-107 Carbon dioxide 21 mmol/L 21-32 Serum or plasma anion gap determination (moles/volume) 9 mmol/L 5-14 Serum or plasma urea nitrogen measurement (mass/volume ) 12 mg/dL 7-18 Serum or plasma creatinine measurement (mass/volume) 0.85 mg/dL 0.60-1.30 Serum or plasma urea nitrogen/creatinine mass ratio 14 NRG Serum or plasma creatinine measurement w ith calculation of estimated glomerular filtration rate > NRG Serum or plasma glucose measurement (mass/volume) 86 mg/dL 70-105 Serum or plasma calcium measurement (mass/volume) 8.2 mg/dL 8.5-10.1 Encounters ACCT No. Visit Date/Time Discharge Status Pt. Type Provider Facility Loc./Unit Complaint [id number] 12/18/2019 00:35:00 020 09:00:00 DIS Inpatient SUSY CHAVIRA DO Via [facility] 4TH PNA,PHARYNGITIS ,SEPSIS [id number] 04/22/2014 12:40:00 014 23:59:59 CLS Outpatient [id number] 08/27/2013 08:18:00 013 23:59:59 CLS Outpatient
--- OUTSIDE RECORDS SUMMARY | 2019-12-20 01:33 | XMS REPORT | Continuity of Care Document ---
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 Type Provider Facility Loc./Unit Complaint [id number] 12/18/2019 00:35:00 020 09:00:00 DIS Inpatient SUSY CHAVIRA DO [facility] 4TH PNA,PHARYNGITIS ,SEPSIS [id number] 04/22/2014 12:40:00 014 23:59:59 CLS Outpatient [id number] 08/27/2013 08:18:00 013 23:59:59 CLS Outpatient
--- NOTE | 2019-12-22 08:01 | Discharge Summary ---
Diagnosis/Chief Complaint Date of Admission Dec 18, 2019 at 00:35 Date of Discharge Dec 19, 2019 at 09:00 Discharge Date: Dec 19, 2019 Discharge Time: 07:59 Discharge Diagnosis Pharyngitis. Acute Thrombocytopenia. Pneumonia. Elevated lactic acid. Throat strep beta hemolytic group B. Artificial heart valve. Sepsis. Failed outpatient treatment. Long-term current use of anticoagulant. Nicotine dependence. Present of prosthetic heart valve Reason Hospital Visit Patient came out to the emergency room in private vehicle. Patient has been treated as an outpatient for respiratory problem without success. Patient has cough and congestion. Patient having severe sore throat and problem with talking. Patient having lung congestion. Patient has an elevated lactic acid of 3.08. Patient tachycardia.. Allergic to medications denies. Surgery open heart mitral valve, knee, appendectomy. Family history mother of lung cancer. Patient admits to smoking Discharge Summary Discharge Physical Examination Allergies: Coded Allergies: No Known Drug Allergies (Unverified , 12/17/19) Vitals & I&Os Vital Signs Date Time Temp Pulse Resp B/P (MAP) Pulse Ox O2 Delivery O2 Flow Rate FiO2 12/19/19 08:57 Room Air 12/19/19 08:00 98 12/19/19 04:00 36.6 69 20 12/18/19 03:36 21 Hospital Course Was the Problem List Reviewed?: Yes Patient hospital Better. Patient wanted to go home Labs (last 24 hrs) Laboratory Tests 12/17/19 23:12: White Blood Count 12.8H, Red Blood Count 5.36, Hemoglobin 16.8, Hematocrit 49, Mean Corpuscular Volume 91, Mean Corpuscular Hemoglobin 31, Mean Corpuscular Hemoglobin Concent 34, Red Cell Distribution Width 14.1, Platelet Count 188, Mean Platelet Volume 12.0H, Neutrophils (%) (Auto) 83H, Lymphocytes (%) (Auto) 12, Monocytes (%) (Auto) 6, Eosinophils (%) (Auto) 0, Basophils (%) (Auto) 0, Neutrophils # (Auto) 10.6H, Lymphocytes # (Auto) 1.5, Monocytes # (Auto) 0.7, Eosinophils # (Auto) 0.0, Basophils # (Auto) 0.0, Prothrombin Time 25.2H, INR Comment 2.2H, Activated Partial Thromboplast Time 40H, Sodium Level 137, Potassium Level 3.6, Chloride Level 105, Carbon Dioxide Level 17L, Anion Gap 15H , Blood Urea Nitrogen 15, Creatinine 1.03, Estimat Glomerular Filtration Rate > 60, BUN/Creatinine Ratio 15, Glucose Level 190H, Calcium Level 9.6, Corrected Calcium 9.2, Total Bilirubin 0.3, Aspartate Amino Transf (AST/SGOT) 27, Alanine Aminotransferase (ALT/SGPT) 37, Alkaline Phosphatase 75, Total Protein 8.0, Albumin 4.5 12/17/19 23:27: Lactic Acid Level 3.08*H 12/17/19 23:31: Urine Color YELLOW, Urine Clarity CLEAR, Urine pH 6.0, Urine Specific Dorena <=1.005, Urine Protein NEGATIVE, Urine Glucose (UA) NEGATIVE, Urine Ketones NEGATIVE, Urine Nitrite NEGATIVE, Urine Bilirubin NEGATIVE, Urine Urobilinogen 0.2, Urine Leukocyte Esterase NEGATIVE, Urine RBC (Auto) TRACE-I, Urine RBC NONE, Urine WBC NONE, Urine Crystals NONE, Urine Bacteria TRACE, Urine Casts NONE, Urine Mucus NEGATIVE, Urine Culture Indicated NO, Urine Opiates Screen NEGATIVE, Urine Oxycodone Screen NEGATIVE, Urine Methadone Screen NEGATIVE, Urine Propoxyphene Screen NEGATIVE, Urine Barbiturates Screen NEGATIVE, Ur Tricyclic Antidepressants Screen NEGATIVE, Urine Phencyclidine Screen NEGATIVE, Urine Amphetamines Screen NEGATIVE, Urine Methamphetamines Screen NEGATIVE, Urine Benzodiazepines Screen POSITIVEH, Urine Cocaine Screen NEGATIVE, Urine Cannabinoids Screen NEGATIVE 12/18/19 00:10: Group A Streptococcus Screen NEGATIVE 12/18/19 05:53: White Blood Count 13.3H, Red Blood Count 4.80, Hemoglobin 15.3, Hematocrit 44, Mean Corpuscular Volume 92, Mean Corpuscular Hemoglobin 32, Mean Corpuscular Hemoglobin Concent 35, Red Cell Distribution Width 14.2, Platelet Count 154, Mean Platelet Volume 11.6H, Neutrophils (%) (Auto) 71, Lymphocytes (%) (Auto) 22, Monocytes (%) (Auto) 6, Eosinophils (%) (Auto) 0, Basophils (%) (Auto) 0, Neutrophils # (Auto) 9.5H, Lymphocytes # (Auto) 3.0, Monocytes # (Auto) 0.8, Eosinophils # (Auto) 0.0, Basophils # (Auto) 0.0, Prothrombin Time 28.3H, INR Comment 2.5H, Sodium Level 134L, Potassium Level 4.5, Chloride Level 107, Carbon Dioxide Level 19L, Anion Gap 8, Blood Urea Nitrogen 13, Creatinine 0.86, Estimat Glomerular Filtration Rate > 60, BUN/Creatinine Ratio 15, Glucose Level 110H, Lactic Acid Level 1.43, Calcium Level 8.1L, Corrected Calcium 8.1L, Total Bilirubin 0.3, Aspartate Amino Transf (AST/SGOT) 34, Alanine Aminotransferase (ALT/SGPT) 36, Alkaline Phosphatase 60, Total Protein 7.1, Albumin 4.0 12/19/19 04:30: White Blood Count 7.1, Red Blood Count 4.84, Hemoglobin 15.1, Hematocrit 45, Mean Corpuscular Volume 93, Mean Corpuscular Hemoglobin 31, Mean Corpuscular Hemoglobin Concent 34, Red Cell Distribution Width 14.2, Platelet Count 129L, Mean Platelet Volume 11.4H, Prothrombin Time 25.1H, INR Comment 2.2H, Sodium Level 137, Potassium Level 4.6, Chloride Level 107, Carbon Dioxide Level 21, Anion Gap 9, Blood Urea Nitrogen 12, Creatinine 0.85, Estimat Glomerular Filtration Rate > 60, BUN/Creatinine Ratio 14, Glucose Level 86, Calcium Level 8.2L Microbiology 12/18/19 Throat Culture - Final, Complete Strep, Beta Hemolytic Group B 12/17/19 Blood Culture - Preliminary, Resulted No growth 12/17/19 Urine Culture - Final, Complete NO GROWTH Laboratory Tests 12/17/19 23:12 12/18/19 05:53 12/19/19 04:30 Pending Labs Microbiology Date/Time Source Procedure Growth Status 12/18/19 00:10 Throat Throat Culture - Final Strep, Beta Hemolytic Group B Complete 12/17/19 23:43 Peripheral Rt Ac Blood Culture - Preliminary No growth Resulted 12/17/19 23:31 Urine Clean Catch Urine Culture - Final NO GROWTH Complete 12/17/19 23:27 Peripheral Lt Ac Blood Culture - Preliminary No growth Resulted 12/17/19 23:26 Nasopharynx Influenza Types A,B Antigen (MICHAEL) - Final Complete Laboratory Tests 12/17/19 23:12: White Blood Count 12.8, Red Blood Count 5.36, Hemoglobin 16.8, Hematocrit 49, Mean Corpuscular Volume 91, Mean Corpuscular Hemoglobin 31, Mean Corpuscular Hemoglobin Concent 34, Red Cell Distribution Width 14.1, Platelet Count 188, Mean Platelet Volume 12.0, Neutrophils (%) (Auto) 83, Lymphocytes (%) (Auto) 12, Monocytes (%) (Auto) 6, Eosinophils (%) (Auto) 0, Basophils (%) (Auto) 0, Neutrophils # (Auto) 10.6, Lymphocytes # (Auto) 1.5, Monocytes # (Auto) 0.7, Eosinophils # (Auto) 0.0, Basophils # (Auto) 0.0, Prothrombin Time 25.2, INR Comment 2.2, Activated Partial Thromboplast Time 40, Sodium Level 137, Potassium Level 3.6, Chloride Level 105, Carbon Dioxide Level 17, Anion Gap 15, Blood Urea Nitrogen 15, Creatinine 1.03, Estimat Glomerular Filtration Rate > 60, BUN/Creatinine Ratio 15, Glucose Level 190, Calcium Level 9.6, Corrected Calcium 9.2, Total Bilirubin 0.3, Aspartate Amino Transf (AST/SGOT) 27, Alanine Aminotransferase (ALT/SGPT) 37, Alkaline Phosphatase 75, Total Protein 8.0, Albumin 4.5 12/17/19 23:27: Lactic Acid Level 3.08 12/17/19 23:31: Urine Color YELLOW, Urine Clarity CLEAR, Urine pH 6.0, Urine Specific Dorena <=1.005, Urine Protein NEGATIVE, Urine Glucose (UA) NEGATIVE, Urine Ketones NEGATIVE, Urine Nitrite NEGATIVE, Urine Bilirubin NEGATIVE, Urine Urobilinogen 0.2, Urine Leukocyte Esterase NEGATIVE, Urine RBC (Auto) TRACE-I, Urine RBC NONE, Urine WBC NONE, Urine Crystals NONE, Urine Bacteria TRACE, Urine Casts NONE, Urine Mucus NEGATIVE, Urine Culture Indicated NO, Urine Opiates Screen NEGATIVE, Urine Oxycodone Screen NEGATIVE, Urine Methadone Screen NEGATIVE, Urine Propoxyphene Screen NEGATIVE, Urine Barbiturates Screen NEGATIVE, Ur Tricyclic Antidepressants Screen NEGATIVE, Urine Phencyclidine Screen NEGATIVE, Urine Amphetamines Screen NEGATIVE, Urine Methamphetamines Screen NEGATIVE, Urine Benzodiazepines Screen POSITIVE, Urine Cocaine Screen NEGATIVE, Urine Cannabinoids Screen NEGATIVE 12/18/19 00:10: Group A Streptococcus Screen NEGATIVE 12/18/19 05:53: White Blood Count 13.3, Red Blood Count 4.80, Hemoglobin 15.3, Hematocrit 44, Mean Corpuscular Volume 92, Mean Corpuscular Hemoglobin 32, Mean Corpuscular Hemoglobin Concent 35, Red Cell Distribution Width 14.2, Platelet Count 154, Mean Platelet Volume 11.6, Neutrophils (%) (Auto) 71, Lymphocytes (%) (Auto) 22, Monocytes (%) (Auto) 6, Eosinophils (%) (Auto) 0, Basophils (%) (Auto) 0, Neutrophils # (Auto) 9.5, Lymphocytes # (Auto) 3.0, Monocytes # (Auto) 0.8, Eosinophils # (Auto) 0.0, Basophils # (Auto) 0.0, Prothrombin Time 28.3, INR Comment 2.5, Sodium Level 134, Potassium Level 4.5, Chloride Level 107, Carbon Dioxide Level 19, Anion Gap 8, Blood Urea Nitrogen 13, Creatinine 0.86, Estimat Glomerular Filtration Rate > 60, BUN/Creatinine Ratio 15, Glucose Level 110, Lactic Acid Level 1.43, Calcium Level 8.1, Corrected Calcium 8.1, Total Bilirubin 0.3, Aspartate Amino Transf (AST/SGOT) 34, Alanine Aminotransferase (ALT/SGPT) 36, Alkaline Phosphatase 60, Total Protein 7.1, Albumin 4.0 12/19/19 04:30: White Blood Count 7.1, Red Blood Count 4.84, Hemoglobin 15.1, Hematocrit 45, Lu n Corpuscular Volume 93, Mean Corpuscular Hemoglobin 31, Mean Corpuscular Hemoglobin Concent 34, Red Cell Distribution Width 14.2, Platelet Count 129, Mean Platelet Volume 11.4, Prothrombin Time 25.1, INR Comment 2.2, Sodium Level 137, Potassium Level 4.6, Chloride Level 107, Carbon Dioxide Level 21, Anion Gap 9, Blood Urea Nitrogen 12, Creatinine 0.85, Estimat Glomerular Filtration Rate > 60, BUN/Creatinine Ratio 14, Glucose Level 86, Calcium Level 8.2 Discussion & Recommendations Patient sent home on Zithromax Discharge Home Medications: Active Scripts Active Zithromax (Azithromycin) 250 Mg Tablet 250 Mg PO UD TAKE 2 TABLETS TODAY, THEN TAKE 1 TABLET DAILY FOR 4 MORE DAYS Reported Warfarin Sodium 5 Mg Tablet 5 Mg PO UD PT TAKES WARFARIN 4MG 2 CONSECUTIVE DAYS THEN THE 3RD DAY HE TAKES WARFARIN 5MG EX: 4 MG, 4MG, 5MG, 4MG, 4MG, 5MG LAST DOSE OF 5MG WAS Sunday12-16-19 NEXT DOSE IS DUE 12-19-19 Warfarin Sodium 4 Mg Tablet 4 Mg PO UD PT TAKES WARFARIN 4MG 2 CONSECUTIVE DAYS THEN THE 3RD DAY HE TAKES WARFARIN 5MG EX: 4 MG, 4MG, 5MG, 4MG, 4MG, 5MG [place] 7.5-325 Tablet (Hydrocodone/Acetaminophen) 1 Each Tablet 0.5-1 Tab PO DAILY PRN Alprazolam 1 Mg Tablet 1 Mg PO HS PRN Lisinopril 20 Mg Tablet 40 Mg PO 1100 TAKES 2 (20MG) TABS TO EQUAL 40MG DAILY Cephalexin 500 Mg Capsule 500 Mg PO Q8H Instructions to patient/family Please see electronic discharge instructions given to patient. Clinical Quality Measures DVT/VTE Risk/Contraindication: Risk Factor Score Per Nursin RFS Level Per Nursing on Admit: 4+=Very High Contraindications-Pharm: Other *list below* SUSY CHAVIRA DO Dec 22, 2019 08:01
== END 2019-12-19 09:00 | disposition home or self-care (01) | DRG 871 ==
LOC: EDUNIT# 22:35 → ER 22:38 → 4TH 12-18 00:35
PROVIDERS: ADMIT Family Medicine; ATTEND Family Medicine
DX: A41.9 Sepsis, unspecified organism (principal); J18.9 Pneumonia, unspecified organism; J02.9 Acute pharyngitis, unspecified; I10 Essential (primary) hypertension; F17.210 Nicotine dependence, cigarettes, uncomplicated; Z95.2 Presence of prosthetic heart valve; Z79.01 Long term (current) use of anticoagulants
CPT/HCPCS: 36415; 71045; 71046; 80048; 80053; 80306; 81000; 83605; 85025; 85027; 85610; 85730; 87040; 87088; 87430; 87804

== ENCOUNTER → 2020-09-24 | Outpatient (CLI) | payer OTHER ==
[~2020-09-24] MED LIST: ALPR1TAB7 PO; AZIT250T PO; CEPH500C PO; HYDR-4227 PO; LISI-552 PO; PRED10TA22 PO; WARF-48 PO; WARF4TAB3 PO
== END ==
LOC: CARD 08:59
PROVIDERS: ATTEND Internal Medicine Cardiovascular Disease
DX: Z95.2 Presence of prosthetic heart valve (principal)
CPT/HCPCS: 93306

== ENCOUNTER 2020-12-27 20:26 | Emergency (ER) | payer OTHER ==
[~2020-12-27] VITALS: Ht 177.8 cm; Wt 113.6 kg
[~2020-12-27 20:26] MED LIST changes: -LISI-552 PO; +LISI20TA26 PO
[2020-12-27] MEDS ORDERED: fentaNYL INJ 100 MCG/2 ML AMP IVP ONE ×2 (21:00→21:15)
[2020-12-27 21:13] LABS: BASOPHILS # (AUTO) 0.1 10^3/uL (0.0-0.1); BASOPHILS % (AUTO) 1 % (0-10); EOSINOPHILS # (AUTO) 0.1 10^3/uL (0.0-0.3); EOSINOPHILS % (AUTO) 1 % (0-10); HEMATOCRIT 50 % (40-54); HEMOGLOBIN 17.2 g/dL (13.3-17.7); LYMPHOCYTES # (AUTO) 2.5 10^3/uL (1.0-4.0); LYMPHOCYTES % (AUTO) 23 % (12-44); MEAN CORPUSCULAR HEMOGLOBIN 31 pg (25-34); MEAN CORPUSCULAR HGB CONC 34 g/dL (32-36); MEAN CORPUSCULAR VOLUME 92 fL (80-99); MEAN PLATELET VOLUME 11.7 fL (9.0-12.2); MONOCYTES # (AUTO) 0.8 10^3/uL (0.0-1.0); MONOCYTES % (AUTO) 7 % (0-12); NEUTROPHILS # (AUTO) 7.3 10^3/uL (1.8-7.8); NEUTROPHILS % (AUTO) 67 % (42-75); PLATELET COUNT 178 10^3/uL (130-400); WHITE BLOOD COUNT 10.9 10^3/uL (4.3-11.0)
--- NOTE | 2020-12-27 21:15 | ED General ---
General Chief Complaint: General Problems/Pain Stated Complaint: POSS HERNIA/GROIN PAIN AND SWELLING Source of Information: Patient Exam Limitations: No Limitations (ROWDY DE LOS SANTOS APRN) History of Present Illness Date Seen by Provider: Dec 27, 2020 Time Seen by Provider: 21:12 Initial Comments To ER with severe left inguinal swelling and pain. This began this morning. He was able to go to work but had significant progression of the swelling and pain throughout the course of the day. He is no longer passing flatus. He has no nausea or vomiting. He believes this began over the course of the weekend when he was lifting some heavy logs up onto the [employer] splitter to split them. No history of any inguinal hernia. He is on warfarin for mechanical heart valve. Timing/Duration: 4-6 Hours Severity: Moderate (ROWDY DE LOS SANTOS APRN) Allergies and Home Medications Allergies Coded Allergies: No Known Drug Allergies (Unverified , 12/17/19) Home Medications Alprazolam 1 Mg Tablet, 1 MG PO HS PRN for SLEEP, (Reported) Azithromycin 250 Mg Tablet, 250 MG PO UD TAKE 2 TABLETS TODAY, THEN TAKE 1 TABLET DAILY FOR 4 MORE DAYS Prescribed by: SUSY CHAVIRA on 12/19/19 0809 Cephalexin 500 Mg Capsule, 500 MG PO Q8H, (Reported) Hydrocodone/Acetaminophen 1 Each Tablet, 0.5-1 TAB PO DAILY PRN for PAIN-MILD (1-4), (Reported) Lisinopril 20 Mg Tablet, 40 MG PO 1100, (Reported) TAKES 2 (20MG) TABS TO EQUAL 40MG DAILY Warfarin Sodium 4 Mg Tablet, 4 MG PO UD, (Reported) PT TAKES WARFARIN 4MG 2 CONSECUTIVE DAYS THEN THE 3RD DAY HE TAKES WARFARIN 5MG EX: 4 MG, 4MG, 5MG, 4MG, 4MG, 5MG Warfarin Sodium 5 Mg Tablet, 5 MG PO UD, (Reported) PT TAKES WARFARIN 4MG 2 CONSECUTIVE DAYS THEN THE 3RD DAY HE TAKES WARFARIN 5MG EX: 4 MG, 4MG, 5MG, 4MG, 4MG, 5MG LAST DOSE OF 5MG WAS Sunday12-16-19 NEXT DOSE IS DUE 12-19-19 Patient Home Medication List Home Medication List Reviewed: Yes (ROWDY DE LOS SANTOS APRN) Review of Systems Review of Systems Constitutional: see HPI EENTM: see HPI Respiratory: no symptoms reported Cardiovascular: no symptoms reported Genitourinary: no symptoms reported Musculoskeletal: no symptoms reported Psychiatric/Neurological: No Symptoms Reported Hematologic/Lymphatic: No Symptoms Reported (ROWDY DE LOS SANTOS APRN) Past Bwjaiim-Mzslno-Ybtygn Hx Patient Social History Alcohol Beverage of Choice: Whiskey Type Used: Cigarettes Recent Hopitalizations: No (ROWDY DE LOS SANTOS APRN) Immunizations Up To Date Date of Influenza Vaccine: Jul 18, 2019 (ROWDY DE LOS SANTOS APRN) Seasonal Allergies Seasonal Allergies: No (ROWDY DE LOS SANTOS APRN) Past Medical History Appendectomy, Cardiac Respiratory: No Cardiac: Yes ("VALVE REPLACEMENT") Hypertension, Valvular Heart Disease Neurological: No Genitourinary: No Gastrointestinal: No Musculoskeletal: Yes (RIGHT KNEE SCOPE AND SCRAPING) Arthritis HEENT: No Cancer: No Psychosocial: No Integumentary: No (ROWDY DE LOS SANTOS APRN) Physical Exam Vital Signs Vital Signs - First Documented 12/27/20 20:41 Temp 36.8 Pulse 120 Resp 18 B/P (MAP) 155/103 (120) Pulse Ox 96 O2 Delivery Room Air (MARGI RODRIGUEZ) Vital Signs Capillary Refill : (ROWDY DE LOS SANTOS APRN) Height, Weight, BMI Height: '" Weight: lbs. oz. kg; 35.93 BMI Method: General Appearance: No Apparent Distress, WD/WN Eyes: Bilateral Eye Normal Inspection Respiratory: No Accessory Muscle Use, No Respiratory Distress Cardiovascular: Regular Rate, Rhythm, Normal Peripheral Pulses Gastrointestinal: Normal Bowel Sounds, Non Tender, Soft, Other (There is significant scrotal swelling on the left side. I am unable to auscultate any bowel sounds within this. It is tender to palpation the overlying scrotum is slightly erythematous. I am unable to reduce this. This is at least incarcerated if not strangulated.) Neurologic/Psychiatric: Alert, No Motor/Sensory Deficits Skin: Normal Color, Warm/Dry (ROWDY DE LOS SANTOS APRN) Focused Exam Lactate Level 12/27/20 21:23: Lactic Acid Level 1.48 (MARGI RODRIGUEZ) Lactic Acid Level Laboratory Tests Test 12/27/20 21:23 Lactic Acid Level 1.48 MMOL/L (0.50-2.00) (MARGI RODRIGUEZ) Progress/Results/Core Measures Suspected Sepsis SIRS Temperature: Pulse: Respiratory Rate: Laboratory Tests 12/27/20 21:00: White Blood Count 10.9 Blood Pressure / Mean: 12/27/20 21:23: Lactic Acid Level 1.48 Laboratory Tests 12/27/20 21:00: Creatinine 1.06, INR Comment 2.5H, Platelet Count 178, Total Bilirubin 0.4 (ROWDY DE LOS SANTOS APRN) Results/Orders Lab Results Laboratory Tests Test 12/27/20 21:00 12/27/20 21:23 Range/Units White Blood Count 10.9 4.3-11.0 10^3/uL Red Blood Count 5.47 4.30-5.52 10^6/uL Hemoglobin 17.2 13.3-17.7 g/dL Hematocrit 50 40-54 % Mean Corpuscular Volume 92 80-99 fL Mean Corpuscular Hemoglobin 31 25-34 pg Mean Corpuscular Hemoglobin Concent 34 32-36 g/dL Red Cell Distribution Width 13.4 10.0-14.5 % Platelet Count 178 130-400 10^3/uL Mean Platelet Volume 11.7 9.0-12.2 fL Immature Granulocyte % (Auto) 0 % Neutrophils (%) (Auto) 67 42-75 % Lymphocytes (%) (Auto) 23 12-44 % Monocytes (%) (Auto) 7 0-12 % Eosinophils (%) (Auto) 1 0-10 % Basophils (%) (Auto) 1 0-10 % Neutrophils # (Auto) 7.3 1.8-7.8 10^3/uL Lymphocytes # (Auto) 2.5 1.0-4.0 10^3/uL Monocytes # (Auto) 0.8 0.0-1.0 10^3/uL Eosinophils # (Auto) 0.1 0.0-0.3 10^3/uL Basophils # (Auto) 0.1 0.0-0.1 10^3/uL Immature Granulocyte # (Auto) 0.0 0.0-0.1 10^3/uL Prothrombin Time 27.0 H 12.2-14.7 SEC INR Comment 2.5 H 0.8-1.4 Sodium Level 135 135-145 MMOL/L Potassium Level 4.2 3.6-5.0 MMOL/L Chloride Level 100 98-107 MMOL/L Carbon Dioxide Level 22 21-32 MMOL/L Anion Gap 13 5-14 MMOL/L Blood Urea Nitrogen 17 7-18 MG/DL Creatinine 1.06 0.60-1.30 MG/DL Estimat Glomerular Filtration Rate > 60 BUN/Creatinine Ratio 16 Glucose Level 117 H 70-105 MG/DL Calcium Level 9.5 8.5-10.1 MG/DL Corrected Calcium 9.1 8.5-10.1 MG/DL Total Bilirubin 0.4 0.1-1.0 MG/DL Aspartate Amino Transf (AST/SGOT) 24 5-34 U/L Alanine Aminotransferase (ALT/SGPT) 26 0-55 U/L Alkaline Phosphatase 83 40-136 U/L Total Protein 8.6 H 6.4-8.2 GM/DL Albumin 4.5 3.2-4.5 GM/DL Lactic Acid Level 1.48 0.50-2.00 MMOL/L (MARGI RODRIGUEZ) My Orders Orders - MARGI RODRIGUEZ Ua Culture If Indicated (12/27/20 20:26) (MARGI RODRIGUEZ) Medications Given in ED Current Medications Medications Dose Ordered Sig/Kamla Route Start Time Stop Time Status Last Admin Dose Admin Fentanyl Citrate 75 mcg ONCE ONCE IVP 12/27/20 21:15 12/27/20 21:16 DC 12/27/20 21:09 75 MCG Hydromorphone HCl 0.5 mg ONCE ONCE IV 12/27/20 22:00 12/27/20 22:01 DC 12/27/20 22:40 0.5 MG Iohexol 100 ml ONCE ONCE IV 12/27/20 21:30 12/27/20 21:31 DC 12/27/20 21:53 100 ML Sodium Chloride 100 ml ONCE ONCE IV 12/27/20 21:30 12/27/20 21:31 DC 12/27/20 21:53 80 ML (MARGI RODRIGUEZ) Vital Signs/I&O 12/27/20 20:41 Temp 36.8 Pulse 120 Resp 18 B/P (MAP) 155/103 (120) Pulse Ox 96 O2 Delivery Room Air (MARGI RODRIGUEZ) Vital Signs/I&O Capillary Refill : (ROWDY DE LOS SANTOS APRN) Progress Note : Time: 22:45 Progress Note Assumed care of the patient at shift change from Rowdy De Los Santos and I agree with the above documented history and physical exam. The patient seems to have some epididymal cysts and hydrocele but no evidence of strangulation or torsion of the testes. There is good blood flow on ultrasound. The inguinal canal is free of herniated abdominal contents. Plan to put him on some antibiotics, pain medicine and have him follow-up with urology. (MARGI RODRIGUEZ) Diagnostic Imaging Diagonstic Imaging: CT Comments NAME: [facility] REC#: [id number] PT STATUS: REG ER : 1970 PHYSICIAN: ROWDY DE LOS SANTOS DYEING MACHINE BACK TENDER ADMIT DATE: 12/27/20/ER Draft Date of Exam:12/27/20 CT ABDOMEN/PELVIS W PROCEDURE: CT abdomen and pelvis with contrast. TECHNIQUE: Multiple contiguous axial images were obtained through the abdomen and pelvis after administration of intravenous contrast. Auto Exposure Controls were utilized during the CT exam to meet ALARA standards for radiation dose reduction. All CT scans use one or more of the following dose optimizing techniques: automated exposure control, MA and/or KvP adjustment based on patient size and exam type or iterative reconstruction. INDICATION: Groin pain, swelling of testicle. CORRELATION STUDY: None. FINDINGS: LOWER THORAX: Heart size normal. Lung bases clear. LIVER: A few calcified granulomas. GALLBLADDER: Contracted, otherwise unremarkable. No bile ductal dilatation. SPLEEN: Scattered calcified granulomas. PANCREAS: Unremarkable. ADRENAL GLANDS: Unremarkable. KIDNEYS: Normal configuration. No calcification or obstruction. ABDOMINAL AORTA: Mild atherosclerotic changes. Nonaneurysmal. GASTROINTESTINAL TRACT: No obstruction or inflammation. Prior apparent appendectomy. No significant ascites. URINARY BLADDER: Unremarkable. REPRODUCTIVE: Prostate gland unremarkable. There is the presence of rather sizable bilateral hydroceles. On the left measuring up to 9 cm. The testicles appear to be somewhat compressed and displaced posteriorly. No definitive abnormal scrotal gas collection. OSSEOUS STRUCTURES: Rather significant multilevel degenerative changes through the thoracic and lumbar spine. OTHER: None. IMPRESSION: 1. Rather sizable bilateral hydroceles, left greater than right. Appears to be some mass effect upon the testicles particularly on the left. Dictated on workstation # [id number] Dict: 12/27/202157 Trans: 12/27/202203 [facility] [id number] Interpreted by: GABBI,JUSTUS K DO Electronically signed by: (ROWDY DE LOS SANTOS APRN) Diagonstic Imaging: Ultrasound Plain Films/CT/US/NM/MRI: other (Scrotum) Comments Good blood flow bilateral testes. Epididymal cysts and large hydroceles. Reviewed: Reviewed by Me (MARGI RODRIGUEZ) Departure Impression Primary Impression: Hydrocele Qualified Codes: N43.3 - Hydrocele, unspecified Additional Impression: Epididymitis Disposition: 01 HOME, SELF-CARE Condition: Stable Departure-Patient Inst. Decision time for Depature: 22:47 (MARGI RODRIGUEZ) Referrals: SUSY CHAVIRA DO (PCP/Family) Primary Care Physician CAROLINE MCKEON MD Patient Instructions: Hydrocele/Varicocele (DC) Add. Discharge Instructions: He has a new fluid collection around the testis known as a hydrocele. Not sure what caused it to come up so quickly perhaps straining or infection. Plan to put you on antibiotics and pain medicines and follow-up with the urologist by calling for an appointment tomorrow. Hydrocodone 1 tablet every 4 hours as necessary for severe pain. Tylenol and Motrin as necessary for pain. Warm moist heat. Doxycycline 1 capsule twice a day for the next 10 days. All discharge instructions reviewed with patient and/or family. Voiced unde rstanding. Scripts Doxycycline Hyclate (Doxycycline Hyclate) 100 Mg Tablet 100 MG PO BID, #20 TAB 0 Refills Prov: MARGI RODRIGUEZ 12/27/20 Hydrocodone/Acetaminophen (Hydrocodone-Acetamin 5-325 mg) 1 Each Tablet 1 TAB PO Q4H PRN for PAIN-MODERATE (5-7), #15 TAB 0 Refills Prov: MARGI RODRIGUEZ 12/27/20 Work/School Note: Work Release Form Date Seen in the Emergency Department: Dec 27, 2020 Return to Work: Jan 03, 2021 Restrictions: No Restrictions Other Restrictions Listed Below: May return sooner if pain is under control. Copy Copies To 1: CAROLINE MCKEON MD, PETER J APRN Dec 27, 2020 21:15 MARGI RODRIGUEZ Dec 27, 2020 22:50
[2020-12-27 21:20] LABS: ALBUMIN 4.5 GM/DL (3.2-4.5); CHLORIDE 100 MMOL/L (98-107); POTASSIUM 4.2 MMOL/L (3.6-5.0); SODIUM 135 MMOL/L (135-145)
[2020-12-27 21:22] LABS: CALCIUM 9.5 MG/DL (8.5-10.1)
[2020-12-27 21:23] LABS: GLUCOSE 117 MG/DL (70-105); TOTAL PROTEIN 8.6 GM/DL (6.4-8.2)
[2020-12-27 21:24] LABS: CARBON DIOXIDE 22 MMOL/L (21-32)
[2020-12-27 21:25] LABS: BILIRUBIN,TOTAL 0.4 MG/DL (0.1-1.0)
[2020-12-27 21:26] LABS: ALKALINE PHOSPHATASE 83 U/L (40-136); CREATININE SERUM 1.06 MG/DL (0.60-1.30); GFR ESTIMATED > 60
[2020-12-27 21:27] LABS: BUN/CREATININE RATIO 16
[2020-12-27 21:28] LABS: INR 2.5 (0.8-1.4)
[2020-12-27 21:29] LABS: ALANINE AMINOTRANSFERASE 26 U/L (0-55)
[2020-12-27] MEDS ORDERED: HOLD METFORMIN - RECEIVED CONTRAST 20 ML VIAL IV SCH (21:30)
[2020-12-27] MEDS ORDERED: CATHETER FLUSH 10 ML SYR IV PRN (21:30)
[2020-12-27] MEDS ORDERED: NS 100 ML (IVPB) BAG IV ONE ×2 (21:30→22:00)
[2020-12-27] MEDS ORDERED: IOHEXOL 350 MG/ML 100 ML (OMNIPAQUE 350) VIAL IV ONE ×2 (21:30→22:00)
[2020-12-27] MEDS ORDERED: HYDROmorphone 2 MG/ML VIAL (DILAUDID) IV ONE (22:00)
--- NOTE | 2020-12-27 22:05 | Diagnostic Imaging Report ---
PROCEDURE: CT abdomen and pelvis with contrast. TECHNIQUE: Multiple contiguous axial images were obtained through the abdomen and pelvis after administration of intravenous contrast. Auto Exposure Controls were utilized during the CT exam to meet ALARA standards for radiation dose reduction. All CT scans use one or more of the following dose optimizing techniques: automated exposure control, MA and/or KvP adjustment based on patient size and exam type or iterative reconstruction. INDICATION: Groin pain, swelling of testicle. CORRELATION STUDY: None. FINDINGS: LOWER THORAX: Heart size normal. Lung bases clear. LIVER: A few calcified granulomas. GALLBLADDER: Contracted, otherwise unremarkable. No bile ductal dilatation. SPLEEN: Scattered calcified granulomas. PANCREAS: Unremarkable. ADRENAL GLANDS: Unremarkable. KIDNEYS: Normal configuration. No calcification or obstruction. ABDOMINAL AORTA: Mild atherosclerotic changes. Nonaneurysmal. GASTROINTESTINAL TRACT: No obstruction or inflammation. Prior apparent appendectomy. No significant ascites. URINARY BLADDER: Unremarkable. REPRODUCTIVE: Prostate gland unremarkable. There is the presence of rather sizable bilateral hydroceles. On the left measuring up to 9 cm. The testicles appear to be somewhat compressed and displaced posteriorly. No definitive abnormal scrotal gas collection. OSSEOUS STRUCTURES: Rather significant multilevel degenerative changes through the thoracic and lumbar spine. OTHER: None. IMPRESSION: 1. Rather sizable bilateral hydroceles, left greater than right. Appears to be some mass effect upon the testicles particularly on the left. Dictated by: Dictated on workstation # [id number]
[2020-12-27] MEDS ORDERED: ACHD5005 PO (22:50)
[2020-12-27] MEDS ORDERED: DOXY100T2 PO (22:50)
[2020-12-27] MEDS ORDERED: RX-HYDROCODONE/APAP 5/325 MG #4 TAB PK PO PRN (23:00)
[2020-12-27] MEDS ORDERED: cefTRIAXone FOR IV USE 1,000 MG in WATER (STERILE) FOR INJECTION 10 ML IV ONE (23:00)
[2020-12-27] MEDS ORDERED: AZITHROMYCIN 250 MG TAB (ZITHROMAX) PO ONE (23:00)
[2020-12-27 23:26] LABS: BILIRUBIN,URINE NEGATIVE (NEGATIVE); CLARITY,URINE SL CLOUDY; COLOR,URINE YELLOW; GLUCOSE, URINE (UA) NEGATIVE (NEGATIVE); KETONES,URINE NEGATIVE (NEGATIVE); LEUKOCYTE ESTERASE ,URINE NEGATIVE (NEGATIVE); NITRITE,URINE NEGATIVE (NEGATIVE); PH,URINE 6.5 (5-9); PROTEIN,URINE NEGATIVE (NEGATIVE)
[2020-12-27 23:36] LABS: BACTERIA,URINE NEGATIVE /HPF; RBC,URINE 0-2 /HPF; SQUAMOUS EPITHELIAL CELL,UR RARE /HPF
[2020-12-27 23:41] VITALS: BP 145/91
--- NOTE | 2020-12-28 08:16 | Diagnostic Imaging Report ---
Clinical indication: Patient with left testicular pain. Rule out torsion. Exam: Ultrasound of the scrotum with color Doppler interrogation. Comparison: Scrotal ultrasound dated 04/22/2014.. Findings: Right testicle: Right testis measures 4.1 cm x 3.3 cm x 2.9 cm. The right testis is homogeneous in echogenicity with no focal mass present. Blood flow is present in right testis on color flow imaging and has normal appearing spectral Doppler waveform. Appendage of the testes is noted. Right epididymis is unremarkable. There is no varicocele. There is a large right hydrocele noted. There is no testicular torsion. Left testicle: Left testis measures 4.7 cm x 2.3 cm x 1.9 cm. Left testis is homogeneous in echogenicity, with no focal mass present. Blood flow is present in left testis on color flow imaging and has normal appearing spectral Doppler waveform. There is interval development of left epididymal head suggestive of cysts seen with the largest measuring 8 mm in greatest dimension. There is no varicocele. Large left hydrocephalus seen. There is no testicular torsion. Patient was noted to have bilateral hydroceles on the prior study which has increased on the left side and not significantly changed on the right side. Impression: 1: There are large bilateral hydroceles which have increased on the left side and not significantly changed in interim on the right. There is no evidence of testicular torsion. 2: There is interval development of subcentimeter left epididymal head cysts. I agree with [employer] report. Dictated by: Dictated on workstation # [id number]
== END 2020-12-27 23:41 | disposition home or self-care (01) ==
LOC: ER 20:26
DX: N43.3 Hydrocele, unspecified (principal); N45.1 Epididymitis; I10 Essential (primary) hypertension; Z79.01 Long term (current) use of anticoagulants
CPT/HCPCS: 36415; 74177; 76870; 80053; 81000; 83605; 85025; 85610; 87491; 87591

== ENCOUNTER 2021-01-04 09:56 | Outpatient (CLI) | payer OTHER ==
[~2021-01-04] VITALS: Ht 177.8 cm; Wt 112.6 kg
[~2021-01-04 09:56] MED LIST changes: +ACHD5005 PO; +DOXY100T2 PO
[2021-01-04 10:14] VITALS: BP 107/76
== END 2021-01-04 10:37 | disposition home or self-care (01) ==
LOC: PREOP 09:56
PROVIDERS: ATTEND Urology
DX: Z01.818 Encounter for other preprocedural examination (principal); N43.3 Hydrocele, unspecified; K40.90 Unilateral inguinal hernia, without obstruction or gangrene, not specified as recurrent
CPT/HCPCS: 87081

== ENCOUNTER 2021-01-12 07:07 | Day surgery (SDC) | payer OTHER ==
[~2021-01-12] VITALS: Ht 177.8 cm; Wt 112.6 kg
[2021-01-12] VITALS (12 sets, daily range): BP systolic 118–150; BP diastolic 66–101
--- NOTE | 2021-01-12 07:21 | Progress Note-Pre Operative ---
Pre-Operative Progress Note H&P Reviewed The H&P was reviewed, patient examined and no changes noted. Date Seen by Provider: Jan 12, 2021 Time Seen by Provider: 07:20 Date H&P Reviewed: Jan 12, 2021 Time H&P Reviewed: 07:20 Pre-Operative Diagnosis: BILATERAL HYDROCELES, LT EPIDIDYMAL CYSTS, POSSIBLE LT INGUINAL HERNIA CAROLINE MCKEON MD Jan 12, 2021 07:21
[2021-01-12] MEDS ORDERED: proPOfol 200 MG/20 ML (DIPRIVAN) VIAL IV ONE (07:22)
[2021-01-12] MEDS ORDERED: LIDOCAINE PF 2% 5 ML (XYLOCAINE) VIAL ONE (07:22)
[2021-01-12] MEDS ORDERED: ONDANSETRON 4 MG/2 ML (SDV) Z0FRAN ONE (07:22)
[2021-01-12] MEDS ORDERED: fentaNYL INJ 100 MCG/2 ML AMP ONE ×2 (07:23→09:10)
[2021-01-12] MEDS ORDERED: MIDAZOLAM 2 MG/2 ML (VERSED) VIAL ONE (07:23)
[2021-01-12] MEDS ORDERED: GENTAMICIN (ADULT) INJECTION 80 MG in NS (IVPB) 100 ML IV ONE (07:30)
[2021-01-12] MEDS ORDERED: AMPICILLIN FOR IV USE 2,000 MG in WATER (STERILE) FOR INJECTION 14.8 ML IV ONE (07:30)
[2021-01-12] MEDS: LACTATED RINGERS 1,000 ML IV PRN ×2 (07:39→09:05)
--- NOTE | 2021-01-12 07:40 | Progress Note-Post Operative ---
Post-Operative Progess Note Surgeon (s)/Ppap Coordinator (s) Surgeon CAROLINE MCKEON MD Ppap Coordinator: NONE Pre-Operative Diagnosis BILATERAL HYDROCELES, LT EPIDIDYMAL CYSTS, POSSIBLE LT INGUINAL HERNIA Post-Operative Diagnosis SAME Procedure & Operative Findings Date of Procedure 01/12/21 Procedure Performed/Findings LT HYDROCELECTOMY Anesthesia Type GENERAL Estimated Blood Loss Estimated blood loss (mL): LESS THAN 50cc Specimens/Packing Specimens Removed LT HYDROCELE SAC Packin/4" LIS DRAIN CAROLINE MCKEON MD Jan 12, 2021 07:40
--- NOTE | 2021-01-12 07:43 | Discharge Inst-Urology ---
Discharge Inst-Urology Reconcile Patient Problems Problems Reviewed?: Yes Final Diagnosis LT HYDROCELE Patient Instructions/Follow Up Plan/Assessment/Instructions Come to office tomorrow 9am to DC drain, can showers after that no bath Please make appointment to been seen in office in 1 week. Ice to scrotum in RR and at home for 6 hours and then PRN Rest and scrotal support for 2 weeks Keep bowels soft and moving Stay off Coumadin Increase oral fluids for 48 hours and then as needed. Diet as tolerated. If questions or concerns contact your physician Or seek help at emergency department. CAROLINE MCKEON MD Jan 12, 2021 07:43
[2021-01-12] MEDS ORDERED: SEVOFLURANE (ULTANE) 15 ML INHAL SOLN ONE ×3 (07:47→08:54)
[2021-01-12 08:37] LABS: INR 1.3 (0.8-1.4); PROTHROMBIN TIME PATIENT 16.1 SEC (12.2-14.7)
[2021-01-12] MEDS ORDERED: GLYCOPYRROLATE 0.2 MG/ML (ROBINUL) 2 ML VIAL ONE ×2 (08:57)
[2021-01-12] MEDS ORDERED: ROCURONIUM 10 MG/ML 5 ML SYRINGE IV ONE (08:58)
[2021-01-12] MEDS ORDERED: NEOSTIGMINE 3 MG/3 ML VIAL ONE (09:12)
--- NOTE | 2021-01-12 09:21 | Anesthesia-General Post-Op ---
General Patient Condition Mental Status/LOC: Same as Preop Cardiovascular: Satisfactory Nausea/Vomiting: Absent Respiratory: Satisfactory Pain: Controlled Complications: Absent Post Op Complications Complications None Follow Up Care/Instructions Patient Instructions None needed. Anesthesia/Patient Condition Patient Condition Patient is doing well, no complaints, stable vital signs, no apparent adverse anesthesia problems. No complications reported per nursing. RAJAN BRODERICK CRNA Jan 12, 2021 09:21
[2021-01-12] MEDS ORDERED: ONDANSETRON 4 MG/2 ML (SDV) Z0FRAN IVP PRN (09:30)
[2021-01-12] MEDS ORDERED: fentaNYL INJ 100 MCG/2 ML AMP IVP ONE (09:30)
[2021-01-12] MEDS ORDERED: morphine INJ 10 MG/ML 1ML (SYR OR VIAL) IVP ONE (09:30)
[2021-01-12] MEDS ORDERED: CEPH500T PO (10:24)
[2021-01-12] MEDS ORDERED: TRAM50TA3 PO (10:24)
--- NOTE | 2021-01-12 16:28 | OPERATIVE REPORT ---
DATE OF SERVICE: 01/12/2021 PREOPERATIVE DIAGNOSES: Bilateral hydroceles, left epididymal cyst, possible left inguinal hernia. POSTOPERATIVE DIAGNOSES: Bilateral hydroceles, left epididymal cyst, possible left inguinal hernia. OPERATION PERFORMED: Left hydrocelectomy. SURGEON: Caroline Mckeon MD ANESTHESIA: General. COMPLICATIONS: None. DESCRIPTION OF PROCEDURE: Under satisfactory general anesthesia, the patient in supine position, the abdomen, genitalia and thigh were prepped and draped in the usual sterile fashion. Incision was made in the median raphe of the scrotum, carried through the left scrotal compartment. Bleeders were cauterized as the dissection was proceeding. Large amount of fluid was suction. The testis and epididymis were looking well. There was couple of very small cysts in the epididymis, I cauterized them. I excised the excess hydrocele sac and sutured the edges in a running suture of 3-0 chromic interrupted at 3 points to prevent recurrence and for hemostasis. Hemostasis was complete. Testicle and epididymis were replaced into the scrotal compartment that was drained with a quarter of an inch Allie drain brought through a separate stab wound at the bottom of the scrotum secured in position with 3-0 chromic catgut suture. Closure was performed in layer, the dartos with a running 3-0 chromic catgut and the skin was interrupted 4-0 Vicryl. There was no reason to do the right side. It was a small and not justifying hydrocelectomy. There was no hernia detected at all and confirmed by Dr. Guerra intraoperatively. scrotal support was applied. Sponge and needle counts were correct. Estimated blood loss was less than 50 mL, none of which was replaced. The patient tolerated the procedure and anesthesia well and was sent to recovery room in stable condition. Job ID: [id number] DocumentID: [id number] Dictated Date: 01/12/2021 09:15:07 [employer]neyman Pipe [employer] Date: 01/12/2021 16:28:12 Dictated By: CAROLINE MCKEON MD
== END 2021-01-12 11:35 | disposition home or self-care (01) ==
LOC: SDC 07:07
PROVIDERS: ATTEND Urology
DX: N43.3 Hydrocele, unspecified (principal); N50.3 Cyst of epididymis; I10 Essential (primary) hypertension; F17.210 Nicotine dependence, cigarettes, uncomplicated; E66.9 Obesity, unspecified; Z68.35 Body mass index [BMI] 35.0-35.9, adult; M06.9 Rheumatoid arthritis, unspecified; Z79.899 Other long term (current) drug therapy; Z80.9 Family history of malignant neoplasm, unspecified; Z95.2 Presence of prosthetic heart valve
CPT/HCPCS: 36415; 85610; 88302

== ENCOUNTER 2023-08-01 08:53 | Emergency (ER) | payer OTHER ==
[~2023-08-01] VITALS: Ht 177.8 cm; Wt 108.8 kg
[~2023-08-01 08:53] MED LIST changes: +CEPH500T PO; +TRAM50TA3 PO
[2023-08-01] MEDS ORDERED: ORPHENADRINE 60 MG/2 ML AMP (ED ONLY) IV ONE (09:15)
[2023-08-01] MEDS ORDERED: morphine INJ 4 MG/ML 1 ML (VIAL/SYRINGE) IVP ONE (09:15)
--- NOTE | 2023-08-01 09:17 | ED General ---
General Chief Complaint: Back Problems Stated Complaint: BACK/CHEST PAIN | Nursing Triage Note: PT AMB TO RM 8 WITH CC OF SHARP BACK PAIN LOCATED IN THE MIDDLE OF BACK. PT REPORTS THAT SYMPTOMS STARTED THIS MORNING. PT STATES THAT HE COUGHED UP BLOOD. HX OF LEAKY VALVE. PT IS ON BLOOD THINNERS. Source of Information: Patient Exam Limitations: No Limitations History of Present Illness Date Seen by Provider: Aug 01, 2023 Time Seen by Provider: 09:00 Initial Comments This 52-year-old gentleman presents to the emergency room with complaints of a very sharp pain in his left lower thoracic back that started early this morning. He also has been coughing up some blood. He is on warfarin post mitral valve replacement. He denies any fever. He has no known coronary artery disease. Allergies and Home Medications Allergies Coded Allergies: No Known Drug Allergies (Unverified , 01/12/21) Patient Home Medication List Home Medication List Reviewed: Yes Alprazolam (Alprazolam) 1 Mg Tablet, 1 MG PO HS PRN for SLEEP, (Reported) Entered as Reported by: CODY COLEMAN on 12/18/19 0957 Cephalexin (Cephalexin) 500 Mg Tablet, 500 MG PO BID Prescribed by: FAIZA BEST on 01/12/21 1024 Cyclobenzaprine HCl (Cyclobenzaprine HCl) 10 Mg Tablet, 10 MG PO Q8H PRN for SPASMS Prescribed by: BHUMIKA CASE on 08/01/23 1338 Hydrocodone/Acetaminophen (Hydrocodone-Acetamin 5-325 mg) 1 Each Tablet, 1 TAB PO Q4H PRN for PAIN-MODERATE (5-7) Prescribed by: MARGI RODRIGUEZ on 12/27/20 2251 Hydrocodone/Acetaminophen (Hydrocodone-Acetamin 5-325 mg) 5 Mg-325 Mg Tablet, 1 TAB PO Q4H PRN for PAIN-MODERATE (5-7) Prescribed by: BHUMIKA CASE on 08/01/23 1339 Lisinopril (Lisinopril) 20 Mg Tablet, 40 MG PO 1100, (Reported) Entered as Reported by: CODY COLEMAN on 12/18/19 0957 Tramadol HCl (Tramadol HCl) 50 Mg Tablet, 50-100 MG PO Q4H Prescribed by: FAIZA BEST on 4/7/21 1024 Review of Systems Review of Systems Constitutional: no symptoms reported EENTM: no symptoms reported Respiratory: no symptoms reported Cardiovascular: see HPI Gastrointestinal: no symptoms reported Genitourinary: no symptoms reported Musculoskeletal: see HPI Skin: no symptoms reported Psychiatric/Neurological: No Symptoms Reported Hematologic/Lymphatic: See HPI Immunological/Allergic: no symptoms reported Past Omwmqlz-Fkgtuc-Yhupwx Hx Patient Social History Tobacco Use?: Yes Substance use?: No Alcohol Use?: No Seasonal Allergies Seasonal Allergies: No Past Medical History Surgery/Hospitalization HX: 1993 OPEN HEART SURGERY Surgeries: Yes (Hydrocele repair) Appendectomy, Cardiac, Valve Replacement (prosthetic aortic valve) Respiratory: No Cardiac: Yes (prosthetic aortic valve) Hypertension, Valvular Heart Disease Neurological: No Genitourinary: Yes Gastrointestinal: No Musculoskeletal: Yes (RIGHT KNEE SCOPE AND SCRAPING) Arthritis Endocrine: No HEENT: No Cancer: No Psychosocial: No Integumentary: No Blood Disorders: No Physical Exam Vital Signs Vital Signs - First Documented 08/01/23 08:59 Temp 36.9 Pulse 99 B/P (MAP) 155/116 (129) Pulse Ox 95 O2 Delivery Room Air Capillary Refill : Height, Weight, BMI Height: '" Weight: lbs. oz. kg; 34.00 BMI Method: General Appearance: WD/WN, Mild Distress HEENT: PERRL/EOMI, Normal ENT Inspection Neck: Normal Inspection; No JVD Respiratory: Chest Non Tender, Lungs Clear, Normal Breath Sounds, No Accessory Muscle Use Cardiovascular: Regular Rate, Rhythm, No Edema, No Murmur Gastrointestinal: Normal Bowel Sounds; No No Pulsatile Mass; Non Tender, Soft; No Distended Back: Normal Inspection, Other (Tenderness to palpation just left of the lower thoracic spine) Extremity: Normal Inspection, Non Tender, No Pedal Edema Neurologic/Psychiatric: Alert, Oriented x3, No Motor/Sensory Deficits, Normal Mood/Affect Skin: Normal Color, Warm/Dry Progress/Results/Core Measures Suspected Sepsis SIRS Temperature: Pulse: 99 Respiratory Rate: Laboratory Tests 08/01/23 09:10: White Blood Count 9.6 Blood Pressure 155 /116 Mean: 129 Laboratory Tests 08/01/23 09:10: Creatinine 0.83, INR Comment 1.9H, Platelet Count 173, Total Bilirubin 0.5 Results/Orders Lab Results Laboratory Tests Test 08/01/23 09:10 Range/Units White Blood Count 9.6 4.3-11.0 10^3/uL Red Blood Count 5.23 4.30-5.52 10^6/uL Hemoglobin 16.2 13.3-17.7 g/dL Hematocrit 48 40-54 % Mean Corpuscular Volume 91 80-99 fL Mean Corpuscular Hemoglobin 31 25-34 pg Mean Corpuscular Hemoglobin Concent 34 32-36 g/dL Red Cell Distribution Width 13.2 10.0-14.5 % Platelet Count 173 130-400 10^3/uL Mean Platelet Volume 11.5 9.0-12.2 fL Immature Granulocyte % (Auto) 0 % Neutrophils (%) (Auto) 68 42-75 % Lymphocytes (%) (Auto) 23 12-44 % Monocytes (%) (Auto) 6 0-12 % Eosinophils (%) (Auto) 2 0-10 % Basophils (%) (Auto) 1 0-10 % Neutrophils # (Auto) 6.5 1.8-7.8 10^3/uL Lymphocytes # (Auto) 2.2 1.0-4.0 10^3/uL Monocytes # (Auto) 0.6 0.0-1.0 10^3/uL Eosinophils # (Auto) 0.2 0.0-0.3 10^3/uL Basophils # (Auto) 0.1 0.0-0.1 10^3/uL Immature Granulocyte # (Auto) 0.0 0.0-0.1 10^3/uL Prothrombin Time 22.9 H 12.2-14.7 SEC INR Comment 1.9 H 0.8-1.4 Activated Partial Thromboplast Time 43 H 24-35 SEC Sodium Level 135 135-145 MMOL/L Potassium Level 4.1 3.6-5.0 MMOL/L Chloride Level 104 98-107 MMOL/L Carbon Dioxide Level 22 21-32 MMOL/L Anion Gap 9 5-14 MMOL/L Blood Urea Nitrogen 14 7-18 MG/DL Creatinine 0.83 0.60-1.30 MG/DL Estimat Glomerular Filtration Rate 105 BUN/Creatinine Ratio 17 Glucose Level 98 70-105 MG/DL Calcium Level 9.2 8.5-10.1 MG/DL Corrected Calcium 9.0 8.5-10.1 MG/DL Magnesium Level 1.9 1.6-2.4 MG/DL Total Bilirubin 0.5 0.1-1.0 MG/DL Aspartate Amino Transf (AST/SGOT) 25 5-34 U/L Alanine Aminotransferase (ALT/SGPT) 32 0-55 U/L Alkaline Phosphatase 68 40-136 U/L Myoglobin 28.2 10.0-92.0 NG/ML Troponin I < 0.028 <0.028 NG/ML Total Protein 7.9 6.4-8.2 GM/DL Albumin 4.3 3.2-4.5 GM/DL Lipase 23 8-78 U/L My Orders Orders - BHUMIKA CUEVAS MD Ekg Tracing (08/01/23 08:57) Cbc And Automated Diff (08/01/23 09:05) Magnesium (08/01/23 09:05) Chest 1 View, Ap/Pa Only (08/01/23 09:05) Comprehensive Metabolic Panel (08/01/23 09:05) Myoglobin Serum (08/01/23 09:05) Protime With Inr (08/01/23 09:05) Partial Thromboplastin Time (08/01/23 09:05) O2 (08/01/23 09:05) Monitor-Rhythm Ecg Trace Only (08/01/23 09:05) Ed Iv/Invasive Line Start (08/01/23 09:05) Troponin I [place] (08/01/23 09:05) Morphine Injection (Morphine Injection (08/01/23 09:15) Orphenadrine Inj (Ed Only) (Orphenadrine (08/01/23 09:15) Lipase (08/01/23 09:35) Iohexol Injection (Omnipaque 350 Mg/Ml 1 (08/01/23 10:15) Ns (Ivpb) 100 Ml (Sodium Chloride 0.9% 1 (08/01/23 10:15) Ct Angio Chest/Abd W(R/O Ad) (08/01/23 10:14) Medications Given in ED Vital Signs/I&O 08/01/23 08/01/23 08:59 13:46 Temp 36.9 Pulse 99 84 B/P (MAP) 155/116 (129) 128/94 Pulse Ox 95 O2 Delivery Room Air Capillary Refill : Blood Pressure Mean: 129 Progress Note #1: Time: 09:15 Progress Note Patient was interviewed and examined during triage. EKG was reviewed and interpreted by me. There were was no evidence of ischemia or arrhythmia on the EKG by my interpretation. Pain would appear to be musculoskeletal in nature but patient has risk factors for cardiac, pulmonary, retroperitoneal hemorrhage, and aortic pathology. Chest pain work-up was pursued. Progress Note #2: Progress Note Labs were reviewed and interpreted by me. CBC and CMP were completely unremarkable. Troponin and lipase were negative. INR was near therapeutic at 1.9. CT angiogram of the chest and abdomen was obtained to rule out other possible serious pathology causing his pain. CT angiogram report was reviewed as noted below. An a sending aortic aneurysm measuring 5 cm was noted on the CT report. There is no associated leak, dissection, or hematoma. Based on location of patient's pain, this is likely an incidental finding and not related to his pain. Pain was treated with morphine and Norflex. Ultimately, his pain is likely due to musculoskeletal strain or spasm. His hemoptysis is likely simply due to warfarin use See discharge instructions for further discussion and prescriptions provided. Patient's pain and hypertension were improving at discharge. Progress Note #3: Progress Note 08/03/23, 11:46 - It was discovered that the diagnosis and discharge instruction the patient was discharged with were incorrectly labeled as "abdominal aortic aneurysm" instead of "ascending aortic aneurysm". This error was corrected in the documentation. I have notified the patient who already has an appt with Dr. Crump (cardiovascular surgeon at [facility]) on Aug 08. I have contacted Dr. Crump's office to give them a correction and will be faxing the chart to his office. ECG Initial ECG Impression Date: Aug 01, 2023 Initial ECG Impression Time: 09:00 Initial ECG Rate: 98 Initial ECG Rhythm: Normal Sinus Comment Sinus rhythm with no ischemic appearing ST elevation or depression. Incomplete right bundle branch block. No axis deviation. No STEMI. Diagnostic Imaging Diagonstic Imaging: Xray Plain Films/CT/US/NM/MRI: chest Comments NAME: MAYO FAITH MED REC#: [id number] PT STATUS: DEP ER : 1970 PHYSICIAN: BHUMIKA CUEVAS MD ADMIT DATE: 08/01/23/ER Signed Date of Exam:08/01/23 CHEST 1 VIEW, AP/PA ONLY CLINICAL INDICATION: Patient with sharp back pain located in the low back. Patient reports symptoms started this morning. Patient states that he coughed up blood and has history of a leaky valve. Patient is on blood thinners. EXAM: Portable chest x-ray, upright view. COMPARISON: Chest x-ray dated 12/17/2019. FINDINGS: Lungs/pleura: Lungs are clear. There is no pneumothorax. There is no pleural effusion. Mediastinum: Unremarkable. Pulmonary vasculature: Unremarkable. Heart: Cardiac silhouette is upper limits of normal. There are postop changes to the chest with sternotomy wires. Bones/extrathoracic soft tissue: There are degenerative spurs involving the thoracic spine. IMPRESSION: Stable chest x-ray exam with no interval radiographic evidence of acute cardiopulmonary process. Dictated by: Dictated on workstation # [id number] Dict: 08/01/23925 Trans: 08/01/231738 [id number] Interpreted by: POPEYE ELIZONDO MD Electronically signed by: POPEYE ELIZONDO MD 08/01/239 Diagonstic Imaging: CT Plain Films/CT/US/NM/MRI: chest, abdomen Comments NAME: MAYO FAITH [facility] REC#: [id number] PT STATUS: REG ER : 1970 PHYSICIAN: BHUMIKA CUEVAS MD ADMIT DATE: 08/01/23/ER Signed Date of Exam:08/01/23 CT ANGIO CHEST/ABD W(R/O AD) EXAMINATION: CT angiography of the chest and abdomen. TECHNIQUE: After intravenous administration of contrast, thin section axial CT angiography of the abdomen and chest were obtained. 3D MIP reformats were provided. All CT scans use one or more of the following dose optimizing techniques: automated exposure control, MA and/or KvP adjustment based on a patient size and exam type, or iterative reconstruction. HISTORY: Low thoracic pain, epigastric pain, SOA, coughing up blood COMPARISON: None available. FINDINGS: There has been a prosthetic aortic valve replacement. There is mild scarring about the aorta near the cannulation sites. There is an ascending aortic aneurysm measuring 5.0 x 5.0 cm. No intramural hematoma or dissection. No mural thickening or leakage of contrast. No mediastinal hematoma. The descending aorta and abdominal aorta are normal in caliber. There is no pulmonary embolism. There is no edema or pneumonia. No pleural effusion. No pneumothorax. No suspicious nodules. There is bibasilar atelectasis. There are a few pneumatoceles in the lungs. There is no axillary or supraclavicular lymphadenopathy. There is no mediastinal lymphadenopathy. Heart size is normal. There are no coronary artery calcifications. No pericardial effusion. Aorta is normal in caliber. The liver is normal without focal lesion. There is no biliary ductal dilation. Gallbladder is normal. Pancreas is normal. Spleen is normal. Adrenal glands are normal. The kidneys are normal. There is no hydronephrosis. Visualized bowel is normal in caliber without obstruction or inflammation. No free fluid or air. No abdominal lymphadenopathy. There are no suspicious osseus lesions. IMPRESSION: 1. Ascending aortic aneurysm measuring 5.0 x 5.0 cm. No acute aortic syndrome or pulmonary embolism. Dictated by: Dictated on workstation # [id number] Dict: 08/01/23 1050 Trans: 08/01/23 1055 [facility] [id number] Interpreted by: ELDON PEREIRA MD Electronically signed by: ELDON PEREIRA MD 08/01/23 1055 Departure Impression Primary Impression: Upper back pain Additional Impression: Ascending aortic aneurysm Qualified Codes: I71.21 - Aneurysm of the ascending aorta, without rupture Disposition: 01 HOME, SELF-CARE Condition: Stable Departure-Patient Inst. Decision time for Depature: 13:33 Referrals: SUSY CHAVIRA DO (PCP/Family) Primary Care Physician Patient Instructions: Upper Back Pain ED Add. Discharge Instructions: Your upper abdominal pain is likely musculoskeletal in nature, possibly related to muscle spasm, disc disease, etc. You may take Tylenol (acetaminophen) up to 1000 mg every 6 hours as needed for mild pain. For more severe pain, take hydrocodone as prescribed. Hydrocodone may cause drowsiness so use with caution. Do not drive, operate machinery, or make important decisions while on hydrocodone. Hydrocodone may also cause constipation, see may wish to use a stool softener such as Colace while on hydrocodone. If your pain does not resolve within a few days, please follow-up with your primary care provider for further direction. There was an incidental finding of ascending aortic aneurysm on your CT scan. This needs to be followed by your utility technician and you should seek referral to a vascular surgeon. Please call Dr. Almanzar's office as soon as possible to discuss this further. It is very important that you have good control of your blood pressure with a abdominal aortic aneurysm. Please work with your doctors to ensure blood pressure is well controlled. Return to care if you have worsening symptoms despite following these instructions. All discharge instructions reviewed with patient and/or family. Voiced understanding. Scripts Cyclobenzaprine HCl (Cyclobenzaprine HCl) 10 Mg Tablet 10 MG PO Q8H PRN for SPASMS, #10 TAB 0 Refills Prov: BHUMIKA CUEVAS MD 08/01/23 Hydrocodone/Acetaminophen (Hydrocodone-Acetamin 5-325 mg) 5 Mg-325 Mg Tablet 1 TAB PO Q4H PRN for PAIN-MODERATE (5-7), #15 TAB Prov: BHUMIKA CUEVAS MD 08/01/23 Work/School Note: Work Release Form Date Seen in the Emergency Department: Aug 01, 2023 Return to Work: Aug 06, 2023 Other Restrictions Listed Below: Gradually increase level of activity as pain allows. Copy Copies To 1: ADELINA MCGUIRE MD FACP FAC CCDS Copies To 2: SUSY CHAVIRA JOSHUA T MD Aug 01, 2023 09:17
[2023-08-01 09:29] LABS: ALBUMIN 4.3 GM/DL (3.2-4.5); CHLORIDE 104 MMOL/L (98-107); INR 1.9 (0.8-1.4); PROTHROMBIN TIME PATIENT 22.9 SEC (12.2-14.7)
[2023-08-01 09:30] LABS: POTASSIUM 4.1 MMOL/L (3.6-5.0); SODIUM 135 MMOL/L (135-145)
[2023-08-01 09:31] LABS: CALCIUM 9.2 MG/DL (8.5-10.1)
[2023-08-01 09:32] LABS: GLUCOSE 98 MG/DL (70-105); TOTAL PROTEIN 7.9 GM/DL (6.4-8.2)
[2023-08-01 09:33] LABS: BASOPHILS # (AUTO) 0.1 10^3/uL (0.0-0.1); BASOPHILS % (AUTO) 1 % (0-10); CARBON DIOXIDE 22 MMOL/L (21-32); EOSINOPHILS # (AUTO) 0.2 10^3/uL (0.0-0.3); EOSINOPHILS % (AUTO) 2 % (0-10); HEMATOCRIT 48 % (40-54); HEMOGLOBIN 16.2 g/dL (13.3-17.7); LYMPHOCYTES # (AUTO) 2.2 10^3/uL (1.0-4.0); LYMPHOCYTES % (AUTO) 23 % (12-44); MEAN CORPUSCULAR HEMOGLOBIN 31 pg (25-34); MEAN CORPUSCULAR HGB CONC 34 g/dL (32-36); MEAN CORPUSCULAR VOLUME 91 fL (80-99); MEAN PLATELET VOLUME 11.5 fL (9.0-12.2); MONOCYTES # (AUTO) 0.6 10^3/uL (0.0-1.0); MONOCYTES % (AUTO) 6 % (0-12); NEUTROPHILS # (AUTO) 6.5 10^3/uL (1.8-7.8); NEUTROPHILS % (AUTO) 68 % (42-75); PLATELET COUNT 173 10^3/uL (130-400); WHITE BLOOD COUNT 9.6 10^3/uL (4.3-11.0)
[2023-08-01 09:34] LABS: BILIRUBIN,TOTAL 0.5 MG/DL (0.1-1.0)
--- NOTE | 2023-08-01 09:34 | Diagnostic Imaging Report ---
CLINICAL INDICATION: Patient with sharp back pain located in the low back. Patient reports symptoms started this morning. Patient states that he coughed up blood and has history of a leaky valve. Patient is on blood thinners. EXAM: Portable chest x-ray, upright view. COMPARISON: Chest x-ray dated 12/17/2019. FINDINGS: Lungs/pleura: Lungs are clear. There is no pneumothorax. There is no pleural effusion. Mediastinum: Unremarkable. Pulmonary vasculature: Unremarkable. Heart: Cardiac silhouette is upper limits of normal. There are postop changes to the chest with sternotomy wires. Bones/extrathoracic soft tissue: There are degenerative spurs involving the thoracic spine. IMPRESSION: Stable chest x-ray exam with no interval radiographic evidence of acute cardiopulmonary process. Dictated by: Dictated on workstation # [id number]
[2023-08-01 09:35] LABS: ALKALINE PHOSPHATASE 68 U/L (40-136); CREATININE SERUM 0.83 MG/DL (0.60-1.30); GFR ESTIMATED 105
[2023-08-01 09:37] LABS: BUN/CREATININE RATIO 17
[2023-08-01 09:38] LABS: ALANINE AMINOTRANSFERASE 32 U/L (0-55)
[2023-08-01 09:39] LABS: MAGNESIUM 1.9 MG/DL (1.6-2.4)
[2023-08-01] MEDS ORDERED: IOHEXOL 350 MG/ML 100 ML (OMNIPAQUE 350) VIAL IV ONE (10:15)
[2023-08-01] MEDS ORDERED: NS 100 ML (IVPB) BAG IV ONE (10:15)
--- NOTE | 2023-08-01 10:56 | Diagnostic Imaging Report ---
EXAMINATION: CT angiography of the chest and abdomen. TECHNIQUE: After intravenous administration of contrast, thin section axial CT angiography of the abdomen and chest were obtained. 3D MIP reformats were provided. All CT scans use one or more of the following dose optimizing techniques: automated exposure control, MA and/or KvP adjustment based on a patient size and exam type, or iterative reconstruction. HISTORY: Low thoracic pain, epigastric pain, SOA, coughing up blood COMPARISON: None available. FINDINGS: There has been a prosthetic aortic valve replacement. There is mild scarring about the aorta near the cannulation sites. There is an ascending aortic aneurysm measuring 5.0 x 5.0 cm. No intramural hematoma or dissection. No mural thickening or leakage of contrast. No mediastinal hematoma. The descending aorta and abdominal aorta are normal in caliber. There is no pulmonary embolism. There is no edema or pneumonia. No pleural effusion. No pneumothorax. No suspicious nodules. There is bibasilar atelectasis. There are a few pneumatoceles in the lungs. There is no axillary or supraclavicular lymphadenopathy. There is no mediastinal lymphadenopathy. Heart size is normal. There are no coronary artery calcifications. No pericardial effusion. Aorta is normal in caliber. The liver is normal without focal lesion. There is no biliary ductal dilation. Gallbladder is normal. Pancreas is normal. Spleen is normal. Adrenal glands are normal. The kidneys are normal. There is no hydronephrosis. Visualized bowel is normal in caliber without obstruction or inflammation. No free fluid or air. No abdominal lymphadenopathy. There are no suspicious osseus lesions. IMPRESSION: 1. Ascending aortic aneurysm measuring 5.0 x 5.0 cm. No acute aortic syndrome or pulmonary embolism. Dictated by: Dictated on workstation # [id number]
[2023-08-01] MEDS ORDERED: CYCL10TA25 PO (13:38)
[2023-08-01] MEDS ORDERED: ACHD5005 PO (13:38)
[2023-08-01 13:46] VITALS: BP 128/94
== END 2023-08-01 13:49 | disposition home or self-care (01) ==
LOC: EDUNIT# 08:53 → ER 08:56
DX: M54.6 Pain in thoracic spine (principal); I71.21 Aneurysm of the ascending aorta, without rupture; Z98.890 Other specified postprocedural states; Z95.2 Presence of prosthetic heart valve
CPT/HCPCS: 36415; 71045; 71275; 74175; 80053; 83690; 83735; 83874; 84484; 85025; 85610; 85730; 93005; 93041